=== PATIENT | male | born 1960 | race Caucasian/White ===

== ENCOUNTER 2019-04-10 23:30 | Emergency (ER) | payer OTHER, SELFPAY ==
[2019-04-10 23:42] VITALS: BP 141/89; PULSE 56; RESP 12; TEMP 36.4; O2SAT 95; BMI 21.9
[2019-04-11] VITALS (8 sets, daily range): BP systolic 108–152; BP diastolic 77–96; PULSE 52–61; RESP 11–18; O2SAT 93–95
[2019-04-11 00:11] LABS: Lactate (Lactic Acid) 1.4 mmol/L (0.7-2.1)
[2019-04-11 00:12] LABS: Alanine Aminotransferase 155 IU/L (21-72); Albumin 3.1 g/dL (3.5-5.0); Albumin Globulin Ratio 0.8 (1.0-2.8); Alkaline Phosphatase 465 U/L (38-126); Aspartate Aminotransferase 143 IU/L (17-59); BUN Creatinine Ratio 37.5 (6-22); Bilirubin Total 0.8 mg/dL (0.2-1.3); Blood Urea Nitrogen 15 mg/dL (9-20); Calcium 8.4 mg/dL (8.4-10.2); Carbon Dioxide 30 mmol/L (22-32); Chloride 99 mmol/L (98-107); Estimated Glomerular Filt Rate > 60.0 mL/min (>60); Globulin 3.8 g/dL (1.7-4.1); Glucose 137 mg/dL (70-100); HEMOLYSIS < 15 (0-50); Hematocrit 46.1 % (41-53); Hemoglobin 15.5 g/dL (13.5-17.5); Mean Corpuscular HGB Conc 33.7 % (30-36); Mean Corpuscular Hemoglobin 31.4 PG (26-34); Mean Corpuscular Volume 93.2 fL (80-100); Platelet Count 96 X10^3/uL (150-400); Potassium 4.1 mmol/L (3.4-5.1); Red Blood Cell Count 4.94 X10^6/uL (4.5-5.9); Red Cell Distribution Width 16.1 % (11.6-14.8); Sodium 134 mmol/L (137-145); Total Protein 6.9 g/dL (6.3-8.2); White Blood Cell Count 5.9 X10^3/uL (4.5-11.0)
[2019-04-11 00:19] LABS: INR 1.1 (0.9-1.3); Prothrombin Time 12.9 SECONDS (10.1-12.7)
[2019-04-11 00:21] LABS: PTT Partial Thromboplastin Tim 29 SECONDS (26.4-36.2)
--- NOTE | 2019-04-11 00:35 | DI.CT.S_ITS ---
PROCEDURE: CT HEAD/BRAIN WO CON INDICATIONS: decreased mental status hx of cancer TECHNIQUE: Noncontrast 4.5 mm thick angled axial sections acquired from the foramen magnum to the vertex, with coronal and sagittal reformats. For radiation dose reduction, the following was used: automated exposure control, adjustment of mA and/or kV according to patient size. COMPARISON: None. FINDINGS: Image quality: Excellent. CSF spaces: Basal cisterns are patent. No extra-axial fluid collections. Ventricles are normal in size and shape. Brain: There is a large intra-axial mass in the frontal area at the midline measuring 4.9 x 4.8 x 3.5 cm, invading the frontal calvarium. There is mass effect in the frontal lobes. No midline shift. No intracranial hemorrhage. [place]-white matter interface is normal. Skull and face: Lytic lesion in frontal area and the midline associated soft tissue mass as described above. In addition, there is a smaller 1.0 cm lytic lesion in the left frontal bone. Visualized facial bones are intact, without suspicious lesions. Sinuses: Visualized sinuses and mastoids are clear. IMPRESSION: 1. A large extra-axial mass in the frontal area at the midline measuring 4.9 x 4.8 x 3.5 cm which invades the frontal calvarium. There is mass effect in the frontal lobes. In addition, there is a lytic lesion in the left frontal bone. Both lesions are highly suspicious for metastatic disease. No significant discrepancy with the pst manager radiology preliminary report. Dictated by: Lucho aBrron M.D. on 04/11/2019 at 7:27 Approved by: Lucho Barron M.D. on 04/11/2019 at 7:36
[2019-04-11 00:36] LABS: Neutrophils Absolute Manual 4484 /uL (3000-5900); Total Cells Counted 100
[2019-04-11 00:37] LABS: Anisocytosis 1+
--- NOTE | 2019-04-11 00:39 | ED_ITS ---
HPI - Altered Mental Status General Chief Complaint: Altered Mental Status Stated Complaint: not acting right on chemo meds/radiation therapy Time Seen by Provider: 04/11/19 00:35 Source: family Mode of arrival: wheelchair History of Present Illness HPI narrative: Patient is a 58-year-old male who presents with altered mental status. He has history of hepatocellular carcinoma. They are visiting from [place] he was doing well today they went fishing. They went to bed he told his he was going to go turn off the TV. He sleeps with his eyes open due to a stroke his brother tried to wake him appears difficult to arouse he was willing to come to the ER which states is unusual. He did smoke marijuana yesterday but he has not smoked any today. According to records she has a history of alcohol abuse but he states he did not drink any. He left his narcotic pain medications at home in [place] he does not even have a fentanyl patch on. He continues to fall asleep with eyes open. He denies any pain. Related Data Home Medications Medication Instructions Recorded Confirmed albuterol sulfate 2 puff INHALATION Q6H PRN 04/11/19 04/11/19 buspirone 5 mg PO BID 04/11/19 04/11/19 clopidogrel 75 mg PO DAILY 04/11/19 04/11/19 dexamethasone 4 mg PO TID 04/11/19 04/11/19 dronabinol 2.5 mg PO BID 04/11/19 04/11/19 duloxetine 30 mg PO DAILY 04/11/19 04/11/19 duloxetine 60 mg PO DAILY 04/11/19 04/11/19 fentanyl 25 mcg/hr TRANSDERMAL SEEINSTR 04/11/19 04/11/19 fentanyl 50 mcg/hr TRANSDERMAL SEEINSTR 04/11/19 04/11/19 fentanyl See Rx Instructions .ROUTE .COMPLEX 04/11/19 04/11/19 fluconazole 100 mg PO DAILY 04/11/19 04/11/19 fluconazole 200 mg PO DAILY 04/11/19 04/11/19 folic acid 1 mg PO DAILY 04/11/19 04/11/19 gabapentin 300 mg PO BEDTIME 04/11/19 04/11/19 multivitamin [Daily-Hernan] 1 tab PO DAILY 04/11/19 04/11/19 oxycodone 20 mg PO Q4H 04/11/19 04/11/19 polyethylene glycol 3350 17 g PO PRN PRN 04/11/19 04/11/19 zolpidem 5 mg PO BEDTIME 04/11/19 04/11/19 Review of Systems Review of Systems ROS Unobtainable: All systems reviewed & are unremarkable except as noted in HPI and below Constitutional Denies chills, Denies fever(s), Denies lethargy and Denies weakness Neurologic Denies weakness Exam Initial Vital Signs Initial Vital Signs: Vital Signs Temperature 97.6 F 04/10/19 23:42 Pulse Rate 56 L 04/10/19 23:42 Respiratory Rate 12 04/10/19 23:42 Blood Pressure 141/89 H 04/10/19 23:42 Pulse Oximetry 95 04/10/19 23:42 Gen.: Sleepy male hard to arouse need painful stimulation HEENT: Head is atraumatic he does have an obvious abnormality on the superior part of his head Neck: Neck is supple Lungs: Clear bilaterally no wheezes rales or rhonchi Cardiac: Regular rate no murmur, scar noted Abdomen: Soft nontender no distension no fluid wave no guarding no rebound Extremities: Peripheral pulses intact no gross bony deformity Neurologic: Coagulating Bath Operator strength equal bilaterally Skin: Warm and dry no laceration multiple tattoo Scores GCS [place] coma scale eye opening: To pressure Jeovany coma scale verbal response: Words Jeovany coma scale motor response: Obey commands [place] coma scale total score: 11 Course Orders Ordered: ED Orders 04/10/19 23:50 Ammonia (NH3) Stat Complete Blood Count MAN DIFF Stat Comprehensive Metabolic Panel Stat Lactate (Lactic Acid) Stat PTT [Partial Thromboplastin Time] Stat Prothrombin Time INR Stat 04/11/19 00:35 CT head/brain wo con Stat Troponin & CK Cardiac Panel Stat EKG-12 Lead Stat 04/11/19 02:29 Ethanol (ETOH) Stat Lipase Stat 04/11/19 02:34 Urinalysis and Microscopic Stat Urine Drug Screen, Rapid Stat Discontinued Medications Lactulose (Enulose) 20 gm PO NOW ONE Stop: 04/11/19 01:51 Last Admin: 04/11/19 01:57 Dose: 20 gm Vital Signs - 8 hr 04/10/19 23:42 04/11/19 00:45 04/11/19 01:09 Temperature 97.6 F Pulse Rate 56 L 54 L 56 L Respiratory Rate 12 18 11 L Blood Pressure 141/89 H Blood Pressure [Right Arm] 108/77 145/88 H Pulse Oximetry 95 95 94 04/11/19 02:15 04/11/19 03:15 04/11/19 03:37 Temperature Pulse Rate 61 57 L 59 L Respiratory Rate 16 17 12 Blood Pressure Blood Pressure [Right Arm] 149/96 H 144/90 H 144/90 H Pulse Oximetry 93 94 95 04/11/19 04:15 04/11/19 05:15 04/11/19 05:45 Temperature Pulse Rate 56 L 55 L 52 L Respiratory Rate 12 12 13 Blood Pressure Blood Pressure [Right Arm] 152/91 H 139/91 H 140/89 Pulse Oximetry 94 94 94 MDM - Altered Mental Status Medical Records Attestation: I reviewed the patient's medical records. 92 patient is from the [facility] has been received and reviewed. Patient has had multiple CT scans chest abdomen and pelvis along with head since January. This you to be new diagnosis. Lab Data Attestation: I reviewed the patient's lab results. Result diagrams: 04/10/19 23:50 04/10/19 23:50 Lab Results 04/10/19 04/10/19 04/10/19 Range/Units 23:50 23:50 23:50 WBC 5.9 (4.5-11.0) X10^3/uL RBC 4.94 (4.5-5.9) X10^6/uL Hgb 15.5 (13.5-17.5) g/dL Hct 46.1 (41-53) % MCV 93.2 (80-100) fL MCH 31.4 (26-34) PG MCHC 33.7 (30-36) % RDW 16.1 H (11.6-14.8) % Plt Count 96 L (150-400) X10^3/uL Total Counted 100 Seg Neutrophils % 73.0 H (38-70) % Band Neutrophils % 3.0 (3-7) % Lymphocytes % (Manual) 15.0 L (25-45) % Monocytes % (Manual) 8.0 (2-11) % Eosinophils % (Manual) 1.0 L (2-4) % Neutrophils # (Manual) 4484 (4862-9512) /uL RBC Morphology See below Anisocytosis 1+ H PT 12.9 H (10.1-12.7) SECONDS INR 1.1 (0.9-1.3) APTT 29 (26.4-36.2) SECONDS Sodium 134 L (137-145) mmol/L Potassium 4.1 (3.4-5.1) mmol/L Chloride 99 (98-107) mmol/L Carbon Dioxide 30 (22-32) mmol/L BUN 15 (9-20) mg/dL Creatinine 0.40 L (0.66-1.25) mg/dL Estimated GFR > 60.0 (>60) mL/min BUN/Creatinine Ratio 37.5 H (6-22) Glucose 137 H (70-100) mg/dL Lactate (0.7-2.1) mmol/L Calcium 8.4 (8.4-10.2) mg/dL Total Bilirubin 0.8 (0.2-1.3) mg/dL AST 143 H (17-59) IU/L ALT 155 H (21-72) IU/L Alkaline Phosphatase 465 H (38-126) U/L Ammonia (9-30) umol/L Total Creatine Kinase (55-170) U/L CK-MB (CK-2) CK-MB (CK-2) Rel Index Troponin I (0.01-0.034) ng/mL Total Protein 6.9 (6.3-8.2) g/dL Albumin 3.1 L (3.5-5.0) g/dL Globulin 3.8 (1.7-4.1) g/dL Albumin/Globulin Ratio 0.8 L (1.0-2.8) Lipase (23-300) U/L Urine Color Urine Appearance Urine pH (4.5-8.0) Ur Specific [place] (1.000-1.035) Urine Protein (Negative) Urine Glucose (UA) (Negative) g/dL Urine Ketones (NEGATIVE) Urine Occult Blood (Negative) Urine Nitrate (Negative) Urine Bilirubin (NEGATIVE) Urine Urobilinogen (0.2) E.U./dL Ur Leukocyte Esterase (NEGATIVE) Urine RBC (0-5/HPF) Urine WBC (0-5/HPF) Urine Bacteria (None) Ur Culture Indicated? Urine Opiates Screen (Negative) Ur Oxycodone Screen (Negative) Urine Methadone Screen (Negative) Ur Barbiturates Screen (Negative) U Tricyclic Antidepress (Negative) Ur Phencyclidine Scrn (Negative) Ur Amphetamines Screen (Negative) U Methamphetamines Scrn (Negative) Ur MDMA Scrn (Ecstasy) (Negative) U Benzodiazepines Scrn (Negative) Urine Cocaine Screen (Negative) U Marijuana (THC) Screen (Negative) Ethyl Alcohol mg/dL 04/10/19 04/10/19 04/10/19 Range/Units 23:50 23:50 23:50 WBC (4.5-11.0) X10^3/uL RBC (4.5-5.9) X10^6/uL Hgb (13.5-17.5) g/dL Hct (41-53) % MCV (80-100) fL MCH (26-34) PG MCHC (30-36) % RDW (11.6-14.8) % Plt Count (150-400) X10^3/uL Total Counted Seg Neutrophils % (38-70) % Band Neutrophils % (3-7) % Lymphocytes % (Manual) (25-45) % Monocytes % (Manual) (2-11) % Eosinophils % (Manual) (2-4) % Neutrophils # (Manual) ([id number]) /uL RBC Morphology Anisocytosis PT (10.1-12.7) SECONDS INR (0.9-1.3) APTT (26.4-36.2) SECONDS Sodium (137-145) mmol/L Potassium (3.4-5.1) mmol/L Chloride (98-107) mmol/L Carbon Dioxide (22-32) mmol/L BUN (9-20) mg/dL Creatinine (0.66-1.25) mg/dL Estimated GFR (>60) mL/min BUN/Creatinine Ratio (6-22) Glucose (70-100) mg/dL Lactate 1.4 (0.7-2.1) mmol/L Calcium (8.4-10.2) mg/dL Total Bilirubin (0.2-1.3) mg/dL AST (17-59) IU/L ALT (21-72) IU/L Alkaline Phosphatase (38-126) U/L Ammonia 52.0 H (9-30) umol/L Total Creatine Kinase 53 L (55-170) U/L CK-MB (CK-2) TNP CK-MB (CK-2) Rel Index TNP Troponin I < 0.012 (0.01-0.034) ng/mL Total Protein (6.3-8.2) g/dL Albumin (3.5-5.0) g/dL Globulin (1.7-4.1) g/dL Albumin/Globulin Ratio (1.0-2.8) Lipase (23-300) U/L Urine Color Urine Appearance Urine pH (4.5-8.0) Ur Specific [place] (1.000-1.035) Urine Protein (Negative) Urine Glucose (UA) (Negative) g/dL Urine Ketones (NEGATIVE) Urine Occult Blood (Negative) Urine Nitrate (Negative) Urine Bilirubin (NEGATIVE) Urine Urobilinogen (0.2) E.U./dL Ur Leukocyte Esterase (NEGATIVE) Urine RBC (0-5/HPF) Urine WBC (0-5/HPF) Urine Bacteria (None) Ur Culture Indicated? Urine Opiates Screen (Negative) Ur Oxycodone Screen (Negative) Urine Methadone Screen (Negative) Ur Barbiturates Screen (Negative) U Tricyclic Antidepress (Negative) Ur Phencyclidine Scrn (Negative) Ur Amphetamines Screen (Negative) U Methamphetamines Scrn (Negative) Ur MDMA Scrn (Ecstasy) (Negative) U Benzodiazepines Scrn (Negative) Urine Cocaine Screen (Negative) U Marijuana (THC) Screen (Negative) Ethyl Alcohol mg/dL 04/10/19 04/11/19 04/11/19 Range/Units 23:50 02:34 02:34 WBC (4.5-11.0) X10^3/uL RBC (4.5-5.9) X10^6/uL Hgb (13.5-17.5) g/dL Hct (41-53) % MCV (80-100) fL MCH (26-34) PG MCHC (30-36) % RDW (11.6-14.8) % Plt Count (150-400) X10^3/uL Total Counted Seg Neutrophils % (38-70) % Band Neutrophils % (3-7) % Lymphocytes % (Manual) (25-45) % Monocytes % (Manual) (2-11) % Eosinophils % (Manual) (2-4) % Neutrophils # (Manual) ([id number]) /uL RBC Morphology Anisocytosis PT (10.1-12.7) SECONDS INR (0.9-1.3) APTT (26.4-36.2) SECONDS Sodium (137-145) mmol/L Potassium (3.4-5.1) mmol/L Chloride (98-107) mmol/L Carbon Dioxide (22-32) mmol/L BUN (9-20) mg/dL Creatinine (0.66-1.25) mg/dL Estimated GFR (>60) mL/min BUN/Creatinine Ratio (6-22) Glucose (70-100) mg/dL Lactate (0.7-2.1) mmol/L Calcium (8.4-10.2) mg/dL Total Bilirubin (0.2-1.3) mg/dL AST (17-59) IU/L ALT (21-72) IU/L Alkaline Phosphatase (38-126) U/L Ammonia (9-30) umol/L Total Creatine Kinase (55-170) U/L CK-MB (CK-2) CK-MB (CK-2) Rel Index Troponin I (0.01-0.034) ng/mL Total Protein (6.3-8.2) g/dL Albumin (3.5-5.0) g/dL Globulin (1.7-4.1) g/dL Albumin/Globulin Ratio (1.0-2.8) Lipase 146 (23-300) U/L Urine Color Yellow Urine Appearance Clear Urine pH 7.0 (4.5-8.0) Ur Specific [place] 1.020 (1.000-1.035) Urine Protein Negative (Negative) Urine Glucose (UA) Negative (Negative) g/dL Urine Ketones Negative (NEGATIVE) Urine Occult Blood Negative (Negative) Urine Nitrate Negative (Negative) Urine Bilirubin Negative (NEGATIVE) Urine Urobilinogen 1.0 (0.2) E.U./dL Ur Leukocyte Esterase Negative (NEGATIVE) Urine RBC None seen (0-5/HPF) Urine WBC 0-1/hpf (0-5/HPF) Urine Bacteria None seen (None) Ur Culture Indicated? Cult not indicated Urine Opiates Screen Negative (Negative) Ur Oxycodone Screen Negative (Negative) Urine Methadone Screen Negative (Negative) Ur Barbiturates Screen Negative (Negative) U Tricyclic Antidepress Negative (Negative) Ur Phencyclidine Scrn Negative (Negative) Ur Amphetamines Screen Negative (Negative) U Methamphetamines Scrn Negative (Negative) Ur MDMA Scrn (Ecstasy) Negative (Negative) U Benzodiazepines Scrn Negative (Negative) Urine Cocaine Screen Negative (Negative) U Marijuana (THC) Screen Positive H (Negative) Ethyl Alcohol < 10 mg/dL ECG Data Attestation: I personally reviewed and interpreted this ECG as follows: Prior ECG tracings: available for review (from [facility]) Interpretation: Sinus rhythm rate 80 for PVCs noted no ST changes MDM Narrative Medical decision making narrative: Patient previously admitted 03/05/2019 for confusion and altered mental status. At that time he had an ammonia level of 52 as well. 52 was not significantly elevated. Patient continues to follow sleep. He sleeps with his eyes open. He is difficult to arouse. He is positive for marijuana however the states he did not use this evening. He also denies using. He is not forthcoming with information. He continues to fall to sleep. And needing significant painful stimuli to arouse. states that at this time he is full code. Is later found that patient is on Ambien and that he took the medication prior to arrival. states that he typically has good about taking medication as directed unlikely he took more than 1. 6:15 a.m. patient is speaking much more clearly more than 1 word at a time feels ready and able to go home. It now comes out that he took 2 Ambien. He has a steady gait he has no back to normal and baseline. Ready and able to go home. Discharge Plan Departure Patient Disposition: Home Clinical Impression: Drug reaction Qualifiers: Encounter type: initial encounter Qualified Code(s): T50.905A - Adverse effect of unspecified drugs, medicaments and biological substances, initial encounter Discharge Date/Time: 04/11/19 06:30 Interventions: ED Discharge Assessment Last Done: 04/11/19 06:30 Instructions: DI for Altered Mental Status Activity Restrictions/Additional Instructions: *You have been diagnosed with drug reaction *What to do: What experienced was a normal reaction from Ambien. *Continue to take medications as directed *Follow up with your primary care provider in 2-3 days *Return to ER if you should have increased confusion, weakness or any new, worsening or concerning symptoms Prescriptions: No Action albuterol sulfate 90 mcg/actuation HFA aerosol inhaler 2 puff inhalation Q6H PRN (Reason: Wheezing) RF: 0 multivitamin [Daily-Hernan] tablet 1 tab PO DAILY RF: 0 fluconazole 100 mg tablet 100 mg PO DAILY RF: 0 buspirone 5 mg tablet 5 mg PO BID RF: 0 fentanyl 50 mcg/hr patch 72 hour 50 mcg/hr transdermal SEEINSTR RF: 0 fluconazole 200 mg tablet 200 mg PO DAILY RF: 0 clopidogrel 75 mg tablet 75 mg PO DAILY RF: 0 dronabinol 2.5 mg capsule 2.5 mg PO BID RF: 0 fentanyl 100 mcg/hr patch 72 hour See Rx Instructions .ROUTE .COMPLEX RF: 0 folic acid 1 mg tablet 1 mg PO DAILY RF: 0 zolpidem 5 mg tablet 5 mg PO BEDTIME RF: 0 gabapentin 100 mg capsule 300 mg PO BEDTIME RF: 0 fentanyl 25 mcg/hr patch 72 hour 25 mcg/hr transdermal SEEINSTR RF: 0 duloxetine 30 mg capsule,delayed release(DR/EC) 30 mg PO DAILY RF: 0 duloxetine 60 mg capsule,delayed release(DR/EC) 60 mg PO DAILY RF: 0 dexamethasone 4 mg tablet 4 mg PO TID RF: 0 polyethylene glycol 3350 17 gram/dose powder 17 g PO PRN PRN (Reason: Constipation) RF: 0 oxycodone 20 mg tablet 20 mg PO Q4H RF: 0
[2019-04-11 00:47] LABS: Creatine Kinase 53 U/L (55-170)
[2019-04-11 01:00] LABS: Troponin I < 0.012 ng/mL (0.01-0.034)
[2019-04-11] MEDS: LACTULOSE 20 GM/30 ML SOLUTION PO (01:57)
[2019-04-11 02:41] LABS: Bacteria Urine None Seen; RBC Urine None Seen (0-5/HPF)
[2019-04-11 02:43] LABS: Appearance Urine UA CLEAR; Bilirubin Urine UA NEGATIVE (NEGATIVE); Color Urine UA YELLOW; Glucose Urine UA NEGATIVE (Negative); Ketones Urine UA NEGATIVE (NEGATIVE); Leukocyte Esterase Urine UA NEGATIVE (NEGATIVE); Nitrite Urine UA NEGATIVE (Negative); Occult Blood Urine UA NEGATIVE (Negative); Protein Urine UA NEGATIVE (Negative)
[2019-04-11 02:45] LABS: Ethanol (ETOH) < 10 mg/dL; Lipase 146 U/L (23-300)
[2019-04-11 02:49] LABS: Urine Amphetamines Negative (Negative); Urine Barbiturates Negative (Negative); Urine Benzodiazepines Negative (Negative); Urine Cocaine Negative (Negative); Urine MDMA Negative (Negative); Urine Methadone Negative (Negative); Urine Methamphetamines Negative (Negative); Urine Morphine/Opi cutoff 2000 Negative (Negative); Urine Oxycodone Negative (Negative); Urine Phencyclidine Negative (Negative); Urine Tetrahydrocannabinol Positive (Negative); Urine Tricyclic Antidepressant Negative (Negative)
[2019-04-11 02:56] LABS: Culture Indicated Urine Cult Not Indicated; WBC Urine 0-1/HPF (0-5/HPF)
--- NOTE | 2019-04-11 06:15 | PC.NURSE ---
Pt much more alert now, Dr. Hollis at bedside reassessing patient.
== END 2019-04-11 06:30 | disposition home or self-care (01) ==
PROVIDERS: Emergency Provider Emergency Medicine
DX: R41.82 Altered mental status, unspecified (principal); T50.905A Adverse effect of unspecified drugs, medicaments and biological substances, initial encounter; R03.0 Elevated blood-pressure reading, without diagnosis of hypertension
CPT/HCPCS: 36591; 70450; 80053; 80305; 80320; 81001; 82140; 82550; 83605; 83690; 84484; 85025; 85610; 85730; 93005; 93010; 99284; 99285

== ENCOUNTER → 2019-05-04 12:01 | Outpatient (CLI) | payer OTHER, MEDICAID, SELFPAY ==
[2019-05-04 12:58] LABS: Add Manual Diff / Slide Review NO; Basophils Absolute Auto 0 /uL (0-100); Basophils Percent Auto 0.7 % (0-2); Eosinophils Absolute Auto 0 /uL (0-450); Eosinophils Percent Auto 0.7 % (2-4); Hemoglobin 16.8 g/dL (13.5-17.5); Lymphocytes Absolute Auto 500 /uL (1100-4500); Lymphocytes Percent Auto 10.9 % (25-40); Mean Corpuscular Hemoglobin 31.3 PG (26-34); Monocytes Absolute Auto 400 /uL (0-900); Monocytes Percent Auto 9.2 % (3-14); Neutrophils Absolute Auto 3500 /uL (1500-7000); Neutrophils Percent Auto 78.5 % (50-75); Platelet Count 149 X10^3/uL (150-400); Red Blood Cell Count 5.37 X10^6/uL (4.5-5.9); Red Cell Distribution Width 17.4 % (11.6-14.8); White Blood Cell Count 4.5 X10^3/uL (4.5-11.0)
[2019-05-04 13:12] LABS: INR 1.1 (0.9-1.3); Prothrombin Time 12.8 SECONDS (10.1-12.7)
[2019-05-04 13:14] LABS: PTT Partial Thromboplastin Tim 36 SECONDS (26.4-36.2)
[2019-05-04 13:23] LABS: Alanine Aminotransferase 155 IU/L (21-72); Albumin 3.4 g/dL (3.5-5.0); Albumin Globulin Ratio 0.8 (1.0-2.8); Alkaline Phosphatase 557 U/L (38-126); Aspartate Aminotransferase 238 IU/L (17-59); BUN Creatinine Ratio 24.3 (6-22); Bilirubin Total 0.9 mg/dL (0.2-1.3); Blood Urea Nitrogen 17 mg/dL (9-20); Calcium 8.6 mg/dL (8.4-10.2); Carbon Dioxide 30 mmol/L (22-32); Chloride 100 mmol/L (98-107); Cholesterol 169 mg/dL (140-199); Estimated Glomerular Filt Rate > 60.0 mL/min (>60); Globulin 4.2 g/dL (1.7-4.1); Glucose 87 mg/dL (70-100); HDL Cholesterol 46 mg/dL (40-60); HEMOLYSIS < 15 (0-50); LDL Cholesterol Calculated 100 mg/dL (<100); Potassium 4.6 mmol/L (3.4-5.1); Sodium 136 mmol/L (137-145); Total Protein 7.6 g/dL (6.3-8.2); Triglycerides 114 mg/dL (35-150)
[2019-05-04 13:52] LABS: Thyroid Stimulating Hormone 2.13 uIU/mL (0.47-4.68)
== END ==
PROVIDERS: PCP Internal Medicine; Visit Provider Internal Medicine
DX: C22.0 Liver cell carcinoma (principal)
CPT/HCPCS: 36415; 80053; 80061; 82105; 84443; 85025; 85610; 85730

== ENCOUNTER 2019-05-10 12:03 | Emergency (ER) | payer OTHER, MEDICAID, SELFPAY ==
[2019-05-10] VITALS (8 sets, daily range): BP systolic 95–145; BP diastolic 62–99; PULSE 64–88; RESP 14–23; TEMP 36.1; O2SAT 89–98; BMI 23.6
--- NOTE | 2019-05-10 12:42 | DI.CT.S_ITS ---
PROCEDURE: CT HEAD/BRAIN WO CON INDICATIONS: Right hand weakness and numbness TECHNIQUE: Noncontrast 4.5 mm thick angled axial sections acquired from the foramen magnum to the vertex, with coronal and sagittal reformats. For radiation dose reduction, the following was used: automated exposure control, adjustment of mA and/or kV according to patient size. COMPARISON: [facility], CT, CT HEAD/BRAIN WO CON, 04/11/2019, 0:47. FINDINGS: Image quality: Excellent. CSF spaces: Basal cisterns are patent. No extra-axial fluid collections. The ventricles are symmetric in size and shape. Brain: 4.9 x 4.8 x 2.5 cm hyperdense frontal extra-axial mass is stable compared to 03/20/19. Erosive changes involving the midline of the frontal bone and the left aspect of the frontal bone are stable compared to 04/11/2019. No intracranial bleeds. There is cerebral volume loss for age, with resultant ventricular and sulcal prominence. There are periventricular and deep white matter chronic small vessel ischemic changes. Chronic right occipital infarct is stable compared to prior exam. There is intracranial internal carotid artery atherosclerosis. Skull and face: Calvarium and visualized facial bones appear intact, without suspicious lesions. Sinuses: Visualized sinuses and mastoids are clear. IMPRESSION: 1. Stable examination compared to 04/11/19. 2. Large hyperdense, midline frontal, extra-axial mass is stable in size and contour. The frontal extra-axial mass continues to have mass effect on the adjacent brain parenchyma. 3. Focal osseous erosions involving the midline and left frontal bone are stable compared with the prior exam. Dictated by: Lucy Richardson MD, PhD on 05/10/2019 at 12:58 Approved by: Lucy Richardson MD, PhD on 05/10/2019 at 13:04
--- NOTE | 2019-05-10 13:00 | ED.NEUROSD ---
HPI - Neuro Symptoms/Deficit General Chief Complaint: Neuro Symptoms/Deficit Stated Complaint: right hand numb cant use anymore Time Seen by Provider: 05/10/19 12:56 Source: patient Mode of arrival: ambulatory Limitations: no limitations History of Present Illness HPI Narrative: This is a 58-year-old male comes emergency department with complaint of numbness and difficulty using his right hand. Patient states he noticed it last night and has not improved. Patient is left hand dominant. He denies any numbness or weakness elsewhere. He can lift his arm and use it but he cannot effectively use his hand. Sometimes he notices a little bit issues with speech. 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 Patient states that he did receive radiation for 10 days which was finished on April 11. He then moved here shortly thereafter to be closer to family. He is continuing to take a pill for chemotherapy. Angeline Mejia is helping to establish care with Oncology. This is his [id number]. Patient denies any headaches, sometimes he feels like his vision is a little fuzzy. He denies any chest pain or new shortness of breath. He denies any vomiting but occasionally feels nauseated. Issues with bowel movements or urination. Patient states he has had an appendectomy. He is taking medications for mood, pain control, it appears he is taking dexamethasone 4 mg t.i.d. as well as Plavix. Patient denies any allergies. Rare tobacco use, he no longer drinks alcohol, denies any current illicit. Although he does use Marinol for appetite. On Anticoagulants: No Related Data Home Medications Medication Instructions Recorded Confirmed albuterol sulfate 2 puff INHALATION Q6H PRN 04/11/19 04/11/19 buspirone 5 mg PO BID 04/11/19 04/11/19 clopidogrel 75 mg PO DAILY 04/11/19 04/11/19 dexamethasone 4 mg PO TID 04/11/19 04/11/19 dronabinol 2.5 mg PO BID 04/11/19 04/11/19 duloxetine 30 mg PO DAILY 04/11/19 04/11/19 duloxetine 60 mg PO DAILY 04/11/19 04/11/19 fentanyl 25 mcg/hr TRANSDERMAL SEEINSTR 04/11/19 04/11/19 fentanyl 50 mcg/hr TRANSDERMAL SEEINSTR 04/11/19 04/11/19 fentanyl See Rx Instructions .ROUTE .COMPLEX 04/11/19 04/11/19 fluconazole 100 mg PO DAILY 04/11/19 04/11/19 fluconazole 200 mg PO DAILY 04/11/19 04/11/19 folic acid 1 mg PO DAILY 04/11/19 04/11/19 gabapentin 300 mg PO BEDTIME 04/11/19 04/11/19 multivitamin [Daily-Hernan] 1 tab PO DAILY 04/11/19 04/11/19 oxycodone 20 mg PO Q4H 04/11/19 04/11/19 polyethylene glycol 3350 17 g PO PRN PRN 04/11/19 04/11/19 zolpidem 5 mg PO BEDTIME 04/11/19 04/11/19 Previous Rx's Medication Instructions Recorded dexamethasone 4 mg PO QID #40 tab 05/10/19 Allergies Allergy/AdvReac Type Severity Reaction Status Date / Time No Known Drug Allergies Allergy Verified 05/10/19 12:29 Review of Systems Review of Systems ROS Unobtainable: All systems reviewed & are unremarkable except as noted in HPI and below Constitutional Denies chills, Denies fever(s), Denies lethargy and Reports weakness (right hand) Gastrointestinal Gastrointestinal: Reports nausea and Denies vomiting Musculoskeletal Reports as per HPI, Reports limited range of motion, Reports muscle weakness (right hand) and Denies numbness Integumentary/Breasts Reports dry skin (peeling skin on hands, per patient side effect of medication) and Reports erythema Neurologic Denies numbness and Reports weakness (right hand) PFSH Medical History CVA (cerebral vascular accident) (Acute) Hepatitis C (Acute) Hepatocellular carcinoma (Acute) History of stroke (Acute) Liver cirrhosis (Acute) Surgical History S/P CABG x 3 (Acute) Social History household members: spouse Smoking Status: Current some day smoker Social History household members: spouse Smoking Status: Current some day smoker Exam Narrative Exam Narrative: GEN: well nourished, well appearing male, alert and oriented x 3, patient appears to be in mild distress. HEENT: Atraumatic, pupils are equal round reactive to light, extraocular movements are intact, nares are clear. Throat is clear without any exudates, erythema, tonsillar enlargement or uvular deviation, no facial droop HEART: Regular rate and rhythm without murmur, clicks, rubs. No carotid bruits, pulses are equal in upper and lower extremities LUNGS:Lungs clear to auscultation, no wheezes, rales, crackles, chest moves symmetrically ABD:bowel sounds normal, soft, non-tender, no guarding, rebound, rigidity, no masses noted, no hepatosplenomegaly :No CVA tenderness MSCL: Non-tender, no muscle atrophy, muscles strength 5/5 upper and lower extremities, some except patient he can hold both arms out for 10 seconds but he cannot fully extend his wrist or his fingers. 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 Full range of motion otherwise. NEURO:CN 2-12 intact, sensation normal, reflexes 2/4 upper and lower extremities. finger nose finger test normal, heel [place] test normal. SKIN: Patient has some flaking erythematous skin on his bilateral hands on the dorsum of the and fingers. Patient states this is chronic. No signs of infection, no discharge. Initial Vital Signs Initial Vital Signs: Vital Signs Temperature 97.0 F L 05/10/19 12:26 Pulse Rate 88 05/10/19 12:26 Respiratory Rate 23 05/10/19 12:26 Blood Pressure 119/81 05/10/19 12:26 Pulse Oximetry 91 05/10/19 12:26 Scores NIH Stroke Scale Level of Conciousness: Alert, keenly responsive Ask month/age: Answers both questions correctly. Open/close eyes, close hand: Performs both tasks correctly Best gaze horizontal: Normal Visual [place]: No visual loss Facial palsy: Normal symetrical movement Left arm drift: No drift for full 10 sec Right arm drift: Some effort against gravity, cannot maintain, drifts down to bed (no drift in arm but cannot extend at wrist, hold fingers out) Left leg drift: No drift for full 10 sec Right leg drift: No drift for full 10 sec Limb ataxia: Absent Sensory on face/arms/legs: Normal, no sensory loss Best language: No aphasia, normal Dysarthria: Normal Extinction or inattention: No abnormality Total NIH Stroke scale score: 2 Course Orders Ordered: ED Orders 05/10/19 12:42 CT head/brain wo con Stat EKG-12 Lead Stat 05/10/19 13:00 Basic Metabolic Panel Stat Complete Blood Count AUTO DIFF Stat Partial Thromboplastin Time Stat Prothrombin Time INR Stat 05/10/19 13:56 MR head/brain wo/w con Stat Discontinued Medications Dexamethasone (Decadron) 10 mg IV NOW ONE Stop: 05/10/19 13:13 Last Admin: 05/10/19 13:20 Dose: 10 mg Sodium Chloride (Normal Saline 0.9%) 1,000 mls @ 150 mls/hr IV CONT MATTY Last Infusion: 05/10/19 17:32 Dose: 0 mls/hr Admin: 05/10/19 13:06 Dose: 150 mls/hr Ondansetron HCl (Zofran) 4 mg IV NOW ONE Stop: 05/10/19 13:13 Last Admin: 05/10/19 13:20 Dose: 4 mg Vital Signs - 8 hr 05/10/19 12:26 05/10/19 13:00 05/10/19 13:30 Temperature 97.0 F L Pulse Rate 88 66 64 Respiratory Rate 23 14 15 Blood Pressure 119/81 Blood Pressure [Right Arm] 102/62 95/63 Pulse Oximetry 91 92 94 05/10/19 14:30 05/10/19 15:00 05/10/19 16:46 Temperature Pulse Rate 64 71 74 Respiratory Rate 15 15 15 Blood Pressure Blood Pressure [Right Arm] 103/71 105/78 143/97 H Pulse Oximetry 90 L 90 L 89 L 05/10/19 17:00 05/10/19 17:32 Temperature Pulse Rate 69 67 Respiratory Rate 15 16 Blood Pressure Blood Pressure [Right Arm] 145/96 H 140/99 H Pulse Oximetry 96 98 MDM - Neuro Symptoms/Deficit Lab Data Attestation: I reviewed the patient's lab results. Result diagrams: 05/10/19 13:00 05/10/19 13:00 Lab Results 05/10/19 05/10/19 05/10/19 Range/Units 13:00 13:00 13:00 WBC 5.6 (4.5-11.0) X10^3/uL RBC 4.83 (4.5-5.9) X10^6/uL Hgb 15.5 (13.5-17.5) g/dL Hct 45.1 (41-53) % MCV 93.5 (80-100) fL MCH 32.1 (26-34) PG MCHC 34.3 (30-36) % RDW 17.2 H (11.6-14.8) % Plt Count 83 L (150-400) X10^3/uL Neut % (Auto) 75.1 H (50-75) % Lymph % (Auto) 13.9 L (25-40) % [place] % (Auto) 9.5 (3-14) % Eos % (Auto) 1.0 L (2-4) % Baso % (Auto) 0.5 (0-2) % Neut # (Auto) 4200 (8248-3851) /uL Lymph # (Auto) 800 L (2152-1225) /uL [place] # (Auto) 500 (0-900) /uL Eos # (Auto) 100 (0-450) /uL Baso # (Auto) 0 (0-100) /uL PT 13.3 H (10.1-12.7) SECONDS INR 1.2 (0.9-1.3) APTT 34 D (26.4-36.2) SECONDS Sodium 132 L (137-145) mmol/L Potassium 3.7 (3.4-5.1) mmol/L Chloride 100 (98-107) mmol/L Carbon Dioxide 26 (22-32) mmol/L BUN 11 (9-20) mg/dL Creatinine 0.50 L (0.66-1.25) mg/dL Estimated GFR > 60.0 (>60) mL/min BUN/Creatinine Ratio 22.0 (6-22) Glucose 111 H (70-100) mg/dL Calcium 8.0 L (8.4-10.2) mg/dL Imaging Data CT scan - head: Radiologist's impression: [address] [address] [address] Scan Report Signed Patient: Izaiah Hassan WMR#: [id number] : 1960Acct:[id number] Age/Sex: 58 / MDate of Service: 05/10/19 Loc: ED Accession Number: [id number] Procedure: CT head/brain wo con Ordering Provider: Jacki Howell D.O. PROCEDURE: CT HEAD/BRAIN WO CON INDICATIONS: Right hand weakness and numbness TECHNIQUE: Noncontrast 4.5 mm thick angled axial sections acquired from the foramen magnum to the vertex, with coronal and sagittal reformats. For radiation dose reduction, the following was used: automated exposure control, adjustment of mA and/or kV according to patient size. COMPARISON: [facility], CT, CT HEAD/BRAIN WO CON, 04/11/2019, 0:47. FINDINGS: Image quality: Excellent. CSF spaces: Basal cisterns are patent. No extra-axial fluid collections. The ventricles are symmetric in size and shape. Brain: 4.9 x 4.8 x 2.5 cm hyperdense frontal extra-axial mass is stable compared to 03/20/19. Erosive changes involving the midline of the frontal bone and the left aspect of the frontal bone are stable compared to 04/11/2019. No intracranial bleeds. There is cerebral volume loss for age, with resultant ventricular and sulcal prominence. There are periventricular and deep white matter chronic small vessel ischemic changes. Chronic right occipital infarct is stable compared to prior exam. There is intracranial internal carotid artery atherosclerosis. Skull and face: Calvarium and visualized facial bones appear intact, without suspicious lesions. Sinuses: Visualized sinuses and mastoids are clear. IMPRESSION: 1. Stable examination compared to 04/11/19. 2. Large hyperdense, midline frontal, extra-axial mass is stable in size and contour. The frontal extra-axial mass continues to have mass effect on the adjacent brain parenchyma. 3. Focal osseous erosions involving the midline and left frontal bone are stable compared with the prior exam. Dictated by: Lucy Richardson MD, PhD on 05/10/2019 at 12:58 Approved by: Lucy Richardson MD, PhD on 05/10/2019 at 13:04 MRI brain: Radiologist's impression: [address] [address] Magnetic Resonance Report Signed Patient: Izaiah Hassan WMR#: [id number] : 1960Acct:[id number] Age/Sex: 58 / MDate of Service: 05/10/19 Loc: ED Accession Number: [id number] Procedure: MR head/brain wo/w con Ordering Provider: Jacki Howell D.O. PROCEDURE: MR HEAD/BRAIN WO/W CON INDICATIONS: Right hand weakness, known hcc metastases. TECHNIQUE: Noncontrast axial T1 spin echo, axial T2 fast spin echo, sagittal and axial FLAIR, coronal T2 fast spin echo, axial gradient echo, axial diffusion and ADC through the brain. After the administration of contrast, axial and coronal 3D VIBE or T1 spin echo with fat saturation through the brain. COMPARISON: [facility], CT, CT HEAD/BRAIN WO CON, 05/10/2019, 12:43. [facility], CT, CT HEAD/BRAIN WO CON, 04/11/2019, 0:47. FINDINGS: Image quality: Excellent. CSF Spaces: Basal cisterns are patent. No extra-axial fluid collections. Ventricles are normal in size and shape. Brain: There is mass effect in the frontal lobes near the vertex at midline from the large extra-axial or skull mass. No midline shift. No intracranial bleeds or masses. No abnormal intracranial enhancement. The brainstem appears normal. Diffusion-weighted images demonstrate no acute ischemic insults. No chronic ischemic insults. Normal intravascular flow voids are present. Skull and face: There is a large, extra-axial, heterogeneously enhancing mass centered in the frontal bone at midline near the vertex measuring 5.2 cm anteroposterior, 4.7 cm transverse and 2.7 cm cephalocaudal. The mass demonstrates mass effect and compression of the frontal lobes. A smaller enhancing mass is present in the left frontal bone measuring 1.2 x 2.1 x 0.9 cm. Sinuses: Sinuses and mastoids appear clear. IMPRESSION: 1. A large 5.2 x 4.7 x 2.7 cm extra-axial, heterogeneously enhancing mass centered in the frontal bone at midline near the vertex. There is significant mass effect with compression of the frontal lobes bilaterally. A smaller mass is present in the left frontal bone measuring 1.2 x 2.1 x 0.9 cm. Both lesions are unchanged in size. Both lesions are stable in size. 2. No acute intracranial abnormalities other than significant mass effect to the frontal lobes by the large extra axial mass as described above. Result was discussed with Dr. Howell. Dictated by: Lucho Barron M.D. on 05/10/2019 at 16:32 Approved by: Lucho Barron M.D. on 05/10/2019 at 16:50 ECG Data Attestation: I personally reviewed and interpreted this ECG as follows: Prior ECG tracings: available for review Interpretation: Sinus rhythm with frequent PVCs, rate of 71 P 157 QRS 89 QTC 398. Patient has full bit ST depression in V4, [address] elevation appreciated. Patient has prior from 04/11/2019 with similar PVCs and ST segments appear similar. MDM Narrative Medical decision making narrative: Patient gave me permission to contact Dr. Angeline Mejia to discuss his care. Spoke with Dr. Bateman, we discussed that they would refer him to radiation either Dr. low or weight, increase his steroids to 4 mg q.i.d. from 4 mg t.i.d. and 4 able to get an MRI with and without contrast would be helpful. Discussed with patient he is willing to stay. I also spoke with Dr. Angeline momin and she will help make sure the patient is getting appropriate follow-up and taper him down on his dexamethasone. Referral given to Dr. Alex bellamy as well as the radiation oncology doctors. Patient expressed understanding. He would like to return home. He has intermittent low oxygen readings, he states he has been told this before. He states it doesn't bother him to much and plan to follow up. Discharge Plan Departure Patient Disposition: Home Clinical Impression: Weakness of right hand Discharge Date/Time: 05/10/19 17:38 Interventions: ED Discharge Assessment Last Done: 05/10/19 17:37 Activity Restrictions/Additional Instructions: Follow up with your physician in the next 24 hours. Call for follow up with the oncology team and radiation oncologist. Continue home medications as prescribed. Increase your dexamethasone from 4 mg 3 times daily to 4 mg 4 times daily Return to ER for fevers greater than 100.4F, new or worsening neurologic changes, new chest pain, shortness of breath, sudden vision changes, difficulty with speech, new weakness or difficulty with ambulation, persistent vomiting or other new or concerning symptoms. Prescriptions: New dexamethasone 4 mg tablet 4 mg PO QID Qty: 40 RF: 0 No Action albuterol sulfate 90 mcg/actuation HFA aerosol inhaler 2 puff inhalation Q6H PRN (Reason: Wheezing) RF: 0 multivitamin [Daily-Hernan] tablet 1 tab PO DAILY RF: 0 fluconazole 100 mg tablet 100 mg PO DAILY RF: 0 buspirone 5 mg tablet 5 mg PO BID RF: 0 fentanyl 50 mcg/hr patch 72 hour 50 mcg/hr transdermal SEEINSTR RF: 0 fluconazole 200 mg tablet 200 mg PO DAILY RF: 0 clopidogrel 75 mg tablet 75 mg PO DAILY RF: 0 dronabinol 2.5 mg capsule 2.5 mg PO BID RF: 0 fentanyl 100 mcg/hr patch 72 hour See Rx Instructions .ROUTE .COMPLEX RF: 0 folic acid 1 mg tablet 1 mg PO DAILY RF: 0 zolpidem 5 mg tablet 5 mg PO BEDTIME RF: 0 gabapentin 100 mg capsule 300 mg PO BEDTIME RF: 0 fentanyl 25 mcg/hr patch 72 hour 25 mcg/hr transdermal SEEINSTR RF: 0 duloxetine 30 mg capsule,delayed release(DR/EC) 30 mg PO DAILY RF: 0 duloxetine 60 mg capsule,delayed release(DR/EC) 60 mg PO DAILY RF: 0 dexamethasone 4 mg tablet 4 mg PO TID RF: 0 polyethylene glycol 3350 17 gram/dose powder 17 g PO PRN PRN (Reason: Constipation) RF: 0 oxycodone 20 mg tablet 20 mg PO Q4H RF: 0 Referrals: Eduar Bateman MD [Physician] - Angeline Mejia MD [Primary Care Provider] - Hilario Low MD [Non-Staff] -
[2019-05-10] MEDS: SODIUM CHLORIDE 0.9% 1,000 ML 150 ML IV (13:06)
[2019-05-10 13:09] LABS: Add Manual Diff / Slide Review NO; Basophils Absolute Auto 0 /uL (0-100); Basophils Percent Auto 0.5 % (0-2); Eosinophils Absolute Auto 100 /uL (0-450); Hematocrit 45.1 % (41-53); Hemoglobin 15.5 g/dL (13.5-17.5); Lymphocytes Absolute Auto 800 /uL (1100-4500); Lymphocytes Percent Auto 13.9 % (25-40); Mean Corpuscular HGB Conc 34.3 % (30-36); Mean Corpuscular Hemoglobin 32.1 PG (26-34); Mean Corpuscular Volume 93.5 fL (80-100); Monocytes Absolute Auto 500 /uL (0-900); Monocytes Percent Auto 9.5 % (3-14); Neutrophils Absolute Auto 4200 /uL (1500-7000); Neutrophils Percent Auto 75.1 % (50-75); Platelet Count 83 X10^3/uL (150-400); Red Blood Cell Count 4.83 X10^6/uL (4.5-5.9); Red Cell Distribution Width 17.2 % (11.6-14.8); White Blood Cell Count 5.6 X10^3/uL (4.5-11.0)
[2019-05-10 13:16] LABS: INR 1.2 (0.9-1.3); Prothrombin Time 13.3 SECONDS (10.1-12.7)
[2019-05-10 13:19] LABS: PTT Partial Thromboplastin Tim 34 SECONDS (26.4-36.2)
[2019-05-10] MEDS: ONDANSETRON 4 MG/2 ML INJ IV (13:20)
[2019-05-10] MEDS: DEXAMETHASONE 10 MG/ML VIAL IV (13:20)
--- NOTE | 2019-05-10 13:20 | ED_ITS ---
HPI - Neuro Symptoms/Deficit General Chief Complaint: Neuro Symptoms/Deficit Stated Complaint: right hand numb cant use anymore Time Seen by Provider: 05/10/19 12:56 Source: patient Mode of arrival: ambulatory Limitations: no limitations History of Present Illness HPI Narrative: This is a 58-year-old male comes emergency department with complaint of numbness and difficulty using his right hand. Patient states he noticed it last night and has not improved. Patient is left hand dominant. He denies any numbness or weakness elsewhere. He can lift his arm and use it but he cannot effectively use his hand. Sometimes he notices a little bit issues with speech. 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 Patient states that he did receive radiation for 10 days which was finished on April 11. He then moved here shortly thereafter to be closer to family. He is continuing to take a pill for chemotherapy. Angeline Mejia is helping to establish care with Oncology. This is his [id number]-hoc. Patient denies any headaches, sometimes he feels like his vision is a little fuzzy. He denies any chest pain or new shortness of breath. He denies any vomiting but occasionally feels nauseated. Issues with bowel movements or urination. Patient states he has had an appendectomy. He is taking medications for mood, pain control, it appears he is taking dexamethasone 4 mg t.i.d. as well as Plavix. Patient denies any allergies. Rare tobacco use, he no longer drinks alcohol, denies any current illicit. Although he does use Marinol for appetite. On Anticoagulants: No Related Data Home Medications Medication Instructions Recorded Confirmed albuterol sulfate 2 puff INHALATION Q6H PRN 04/11/19 04/11/19 buspirone 5 mg PO BID 04/11/19 04/11/19 clopidogrel 75 mg PO DAILY 04/11/19 04/11/19 dexamethasone 4 mg PO TID 04/11/19 04/11/19 dronabinol 2.5 mg PO BID 04/11/19 04/11/19 duloxetine 30 mg PO DAILY 04/11/19 04/11/19 duloxetine 60 mg PO DAILY 04/11/19 04/11/19 fentanyl 25 mcg/hr TRANSDERMAL SEEINSTR 04/11/19 04/11/19 fentanyl 50 mcg/hr TRANSDERMAL SEEINSTR 04/11/19 04/11/19 fentanyl See Rx Instructions .ROUTE .COMPLEX 04/11/19 04/11/19 fluconazole 100 mg PO DAILY 04/11/19 04/11/19 fluconazole 200 mg PO DAILY 04/11/19 04/11/19 folic acid 1 mg PO DAILY 04/11/19 04/11/19 gabapentin 300 mg PO BEDTIME 04/11/19 04/11/19 multivitamin [Daily-Hernan] 1 tab PO DAILY 04/11/19 04/11/19 oxycodone 20 mg PO Q4H 04/11/19 04/11/19 polyethylene glycol 3350 17 g PO PRN PRN 04/11/19 04/11/19 zolpidem 5 mg PO BEDTIME 04/11/19 04/11/19 Previous Rx's Medication Instructions Recorded dexamethasone 4 mg PO QID #40 tab 05/10/19 Allergies Allergy/AdvReac Type Severity Reaction Status Date / Time No Known Drug Allergies Allergy Verified 05/10/19 12:29 Review of Systems Review of Systems ROS Unobtainable: All systems reviewed & are unremarkable except as noted in HPI and below Constitutional Denies chills, Denies fever(s), Denies lethargy and Reports weakness (right hand) Gastrointestinal Gastrointestinal: Reports nausea and Denies vomiting Musculoskeletal Reports as per HPI, Reports limited range of motion, Reports muscle weakness (right hand) and Denies numbness Integumentary/Breasts Reports dry skin (peeling skin on hands, per patient side effect of medication) and Reports erythema Neurologic Denies numbness and Reports weakness (right hand) PFSH Medical History CVA (cerebral vascular accident) (Acute) Hepatitis C (Acute) Hepatocellular carcinoma (Acute) History of stroke (Acute) Liver cirrhosis (Acute) Surgical History S/P CABG x 3 (Acute) Social History household members: spouse Smoking Status: Current some day smoker Social History household members: spouse Smoking Status: Current some day smoker Exam Narrative Exam Narrative: GEN: well nourished, well appearing male, alert and oriented x 3, patient appears to be in mild distress. HEENT: Atraumatic, pupils are equal round reactive to light, extraocular movements are intact, nares are clear. Throat is clear without any exudates, erythema, tonsillar enlargement or uvular deviation, no facial droop HEART: Regular rate and rhythm without murmur, clicks, rubs. No carotid bruits, pulses are equal in upper and lower extremities LUNGS:Lungs clear to auscultation, no wheezes, rales, crackles, chest moves symmetrically ABD:bowel sounds normal, soft, non-tender, no guarding, rebound, rigidity, no masses noted, no hepatosplenomegaly :No CVA tenderness MSCL: Non-tender, no muscle atrophy, muscles strength 5/5 upper and lower extremities, some except patient he can hold both arms out for 10 seconds but he cannot fully extend his wrist or his fingers. 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 Full range of motion otherwise. NEURO:CN 2-12 intact, sensation normal, reflexes 2/4 upper and lower extremities. finger nose finger test normal, heel fairbanks test normal. SKIN: Patient has some flaking erythematous skin on his bilateral hands on the dorsum of the and fingers. Patient states this is chronic. No signs of infection, no discharge. Initial Vital Signs Initial Vital Signs: Vital Signs Temperature 97.0 F L 05/10/19 12:26 Pulse Rate 88 05/10/19 12:26 Respiratory Rate 23 05/10/19 12:26 Blood Pressure 119/81 05/10/19 12:26 Pulse Oximetry 91 05/10/19 12:26 Scores NIH Stroke Scale Level of Conciousness: Alert, keenly responsive Ask month/age: Answers both questions correctly. Open/close eyes, close hand: Performs both tasks correctly Best gaze horizontal: Normal Visual [place]: No visual loss Facial palsy: Normal symetrical movement Left arm drift: No drift for full 10 sec Right arm drift: Some effort against gravity, cannot maintain, drifts down to bed (no drift in arm but cannot extend at wrist, hold fingers out) Left leg drift: No drift for full 10 sec Right leg drift: No drift for full 10 sec Limb ataxia: Absent Sensory on face/arms/legs: Normal, no sensory loss Best language: No aphasia, normal Dysarthria: Normal Extinction or inattention: No abnormality Total NIH Stroke scale score: 2 Course Orders Ordered: ED Orders 05/10/19 12:42 CT head/brain wo con Stat EKG-12 Lead Stat 05/10/19 13:00 Basic Metabolic Panel Stat Complete Blood Count AUTO DIFF Stat Partial Thromboplastin Time Stat Prothrombin Time INR Stat 05/10/19 13:56 MR head/brain wo/w con Stat Discontinued Medications Dexamethasone (Decadron) 10 mg IV NOW ONE Stop: 05/10/19 13:13 Last Admin: 05/10/19 13:20 Dose: 10 mg Sodium Chloride (Normal Saline 0.9%) 1,000 mls @ 150 mls/hr IV CONT MATTY Last Infusion: 05/10/19 17:32 Dose: 0 mls/hr Admin: 05/10/19 13:06 Dose: 150 mls/hr Ondansetron HCl (Zofran) 4 mg IV NOW ONE Stop: 05/10/19 13:13 Last Admin: 05/10/19 13:20 Dose: 4 mg Vital Signs - 8 hr 05/10/19 12:26 05/10/19 13:00 05/10/19 13:30 Temperature 97.0 F L Pulse Rate 88 66 64 Respiratory Rate 23 14 15 Blood Pressure 119/81 Blood Pressure [Right Arm] 102/62 95/63 Pulse Oximetry 91 92 94 05/10/19 14:30 05/10/19 15:00 05/10/19 16:46 Temperature Pulse Rate 64 71 74 Respiratory Rate 15 15 15 Blood Pressure Blood Pressure [Right Arm] 103/71 105/78 143/97 H Pulse Oximetry 90 L 90 L 89 L 05/10/19 17:00 05/10/19 17:32 Temperature Pulse Rate 69 67 Respiratory Rate 15 16 Blood Pressure Blood Pressure [Right Arm] 145/96 H 140/99 H Pulse Oximetry 96 98 MDM - Neuro Symptoms/Deficit Lab Data Attestation: I reviewed the patient's lab results. Result diagrams: 05/10/19 13:00 05/10/19 13:00 Lab Results 05/10/19 05/10/19 05/10/19 Range/Units 13:00 13:00 13:00 WBC 5.6 (4.5-11.0) X10^3/uL RBC 4.83 (4.5-5.9) X10^6/uL Hgb 15.5 (13.5-17.5) g/dL Hct 45.1 (41-53) % MCV 93.5 (80-100) fL MCH 32.1 (26-34) PG MCHC 34.3 (30-36) % RDW 17.2 H (11.6-14.8) % Plt Count 83 L (150-400) X10^3/uL Neut % (Auto) 75.1 H (50-75) % Lymph % (Auto) 13.9 L (25-40) % [place]mort[place] % (Auto) 9.5 (3-14) % Eos % (Auto) 1.0 L (2-4) % Baso % (Auto) 0.5 (0-2) % Neut # (Auto) 4200 (8099-3405) /uL Lymph # (Auto) 800 L (8899-9919) /uL [place] # (Auto) 500 (0-900) /uL Eos # (Auto) 100 (0-450) /uL Baso # (Auto) 0 (0-100) /uL PT 13.3 H (10.1-12.7) SECONDS INR 1.2 (0.9-1.3) APTT 34 D (26.4-36.2) SECONDS Sodium 132 L (137-145) mmol/L Potassium 3.7 (3.4-5.1) mmol/L Chloride 100 (98-107) mmol/L Carbon Dioxide 26 (22-32) mmol/L BUN 11 (9-20) mg/dL Creatinine 0.50 L (0.66-1.25) mg/dL Estimated GFR > 60.0 (>60) mL/min BUN/Creatinine Ratio 22.0 (6-22) Glucose 111 H (70-100) mg/dL Calcium 8.0 L (8.4-10.2) mg/dL Imaging Data CT scan - head: Radiologist's impression: [address] [address] [address] Scan Report Signed Patient: Izaiah Hassan WMR#: [id number] : 1960Acct:[id number] Age/Sex: 58 / MDate of Service: 05/10/19 Loc: ED Accession Number: [id number] Procedure: CT head/brain wo con Ordering Provider: Jacki Howell D.O. PROCEDURE: CT HEAD/BRAIN WO CON INDICATIONS: Right hand weakness and numbness TECHNIQUE: Noncontrast 4.5 mm thick angled axial sections acquired from the foramen magnum to the vertex, with coronal and sagittal reformats. For radiation dose reduction, the following was used: automated exposure control, adjustment of mA and/or kV according to patient size. COMPARISON: [facility], CT, CT HEAD/BRAIN WO CON, 04/11/2019, 0:47. FINDINGS: Image quality: Excellent. CSF spaces: Basal cisterns are patent. No extra-axial fluid collections. The ventricles are symmetric in size and shape. Brain: 4.9 x 4.8 x 2.5 cm hyperdense frontal extra-axial mass is stable compared to 03/20/19. Erosive changes involving the midline of the frontal bone and the left aspect of the frontal bone are stable compared to 04/11/2019. No intracranial bleeds. There is cerebral volume loss for age, with resultant ventricular and sulcal prominence. There are periventricular and deep white matter chronic small vessel ischemic changes. Chronic right occipital infarct is stable compared to prior exam. There is intracranial internal carotid artery atherosclerosis. Skull and face: Calvarium and visualized facial bones appear intact, without suspicious lesions. Sinuses: Visualized sinuses and mastoids are clear. IMPRESSION: 1. Stable examination compared to 04/11/19. 2. Large hyperdense, midline frontal, extra-axial mass is stable in size and contour. The frontal extra-axial mass continues to have mass effect on the adjacent brain parenchyma. 3. Focal osseous erosions involving the midline and left frontal bone are stable compared with the prior exam. Dictated by: Lucy Richardson MD, PhD on 05/10/2019 at 12:58 Approved by: Lucy Richardson MD, PhD on 05/10/2019 at 13:04 MRI brain: Radiologist's impression: [address] [address] Magnetic Resonance Report Signed Patient: Izaiah Hassan WMR#: [id number] : 1960Acct:[id number] Age/Sex: 58 / MDate of Service: 05/10/19 Loc: ED Accession Number: [id number] Procedure: MR head/brain wo/w con Ordering Provider: Jacki Howell D.O. PROCEDURE: MR HEAD/BRAIN WO/W CON INDICATIONS: Right hand weakness, known hcc metastases. TECHNIQUE: Noncontrast axial T1 spin echo, axial T2 fast spin echo, sagittal and axial FLAIR, coronal T2 fast spin echo, axial gradient echo, axial diffusion and ADC through the brain. After the administration of contrast, axial and coronal 3D VIBE or T1 spin echo with fat saturation through the brain. COMPARISON: [facility], CT, CT HEAD/BRAIN WO CON, 05/10/2019, 12:43. [facility], CT, CT HEAD/BRAIN WO CON, 04/11/2019, 0:47. FINDINGS: Image quality: Excellent. CSF Spaces: Basal cisterns are patent. No extra-axial fluid collections. Ventricles are normal in size and shape. Brain: There is mass effect in the frontal lobes near the vertex at midline from the large extra-axial or skull mass. No midline shift. No intracranial bleeds or masses. No abnormal intracranial enhancement. The brainstem appears normal. Diffusion- weighted images demonstrate no acute ischemic insults. No chronic ischemic insults. Normal intravascular flow voids are present. Skull and face: There is a large, extra-axial, heterogeneously enhancing mass centered in the frontal bone at midline near the vertex measuring 5.2 cm anteroposterior, 4.7 cm transverse and 2.7 cm cephalocaudal. The mass demonstrates mass effect and compression of the frontal lobes. A smaller enhancing mass is present in the left frontal bone measuring 1.2 x 2.1 x 0.9 cm. Sinuses: Sinuses and mastoids appear clear. IMPRESSION: 1. A large 5.2 x 4.7 x 2.7 cm extra-axial, heterogeneously enhancing mass c entered in the frontal bone at midline near the vertex. There is significant mass effect with compression of the frontal lobes bilaterally. A smaller mass is present in the left frontal bone measuring 1.2 x 2.1 x 0.9 cm. Both lesions are unchanged in size. Both lesions are stable in size. 2. No acute intracranial abnormalities other than significant mass effect to the frontal lobes by the large extra axial mass as described above. Result was discussed with Dr. Howell. Dictated by: Lucho Barron M.D. on 05/10/2019 at 16:32 Approved by: Lucho Barron M.D. on 05/10/2019 at 16:50 ECG Data Attestation: I personally reviewed and interpreted this ECG as follows: Prior ECG tracings: available for review Interpretation: Sinus rhythm with frequent PVCs, rate of 71 P 157 QRS 89 QTC 398. Patient has full bit ST depression in V4, [address] elevation apprecia alyson. Patient has prior from 04/11/2019 with similar PVCs and ST segments appear similar. MDM Narrative Medical decision making narrative: Patient gave me permission to contact Dr. Angeline Mejia to discuss his care. Spoke with Dr. Bateman, we discussed that they would refer him to radiation either Dr. low or weight, increase his steroids to 4 mg q.i.d. from 4 mg t.i.d. and 4 able to get an MRI with and without contrast would be helpful. Discussed with patient he is willing to stay. I also spoke with Dr. Angeline momin and she will help make sure the patient is getting appropriate follow-up and taper him down on his dexamethasone. Referral given to Dr. Alex bellamy as well as the radiation oncology doctors. Patient expressed understanding. He would like to return home. He has intermittent low oxygen readings, he states he has been told this before. He states it doesn't bother him to much and plan to follow up. Discharge Plan Departure Patient Disposition: Home Clinical Impression: Weakness of right hand Discharge Date/Time: 05/10/19 17:38 Interventions: ED Discharge Assessment Last Done: 05/10/19 17:37 Activity Restrictions/Additional Instructions: Follow up with your physician in the next 24 hours. Call for follow up with the oncology team and radiation oncologist. Continue home medications as prescribed. Increase your dexamethasone from 4 mg 3 times daily to 4 mg 4 times daily Return to ER for fevers greater than 100.4F, new or worsening neurologic changes, new chest pain, shortness of breath, sudden vision changes, difficulty with speech, new weakness or difficulty with ambulation, persistent vomiting or other new or concerning symptoms. Prescriptions: New dexamethasone 4 mg tablet 4 mg PO QID Qty: 40 RF: 0 No Action albuterol sulfate 90 mcg/actuation HFA aerosol inhaler 2 puff inhalation Q6H PRN (Reason: Wheezing) RF: 0 multivitamin [Daily-Hernan] tablet 1 tab PO DAILY RF: 0 fluconazole 100 mg tablet 100 mg PO DAILY RF: 0 buspirone 5 mg tablet 5 mg PO BID RF: 0 fentanyl 50 mcg/hr patch 72 hour 50 mcg/hr transdermal SEEINSTR RF: 0 fluconazole 200 mg tablet 200 mg PO DAILY RF: 0 clopidogrel 75 mg tablet 75 mg PO DAILY RF: 0 dronabinol 2.5 mg capsule 2.5 mg PO BID RF: 0 fentanyl 100 mcg/hr patch 72 hour See Rx Instructions .ROUTE .COMPLEX RF: 0 folic acid 1 mg tablet 1 mg PO DAILY RF: 0 zolpidem 5 mg tablet 5 mg PO BEDTIME RF: 0 gabapentin 100 mg capsule 300 mg PO BEDTIME RF: 0 fentanyl 25 mcg/hr patch 72 hour 25 mcg/hr transdermal SEEINSTR RF: 0 duloxetine 30 mg capsule,delayed release(DR/EC) 30 mg PO DAILY RF: 0 duloxetine 60 mg capsule,delayed release(DR/EC) 60 mg PO DAILY RF: 0 dexamethasone 4 mg tablet 4 mg PO TID RF: 0 polyethylene glycol 3350 17 gram/dose powder 17 g PO PRN PRN (Reason: Constipation) RF: 0 oxycodone 20 mg tablet 20 mg PO Q4H RF: 0 Referrals: Eduar Bateman MD [Physician] - Angeline Mejia MD [Primary Care Provider] - Hilario Low MD [Non-Staff] -
[2019-05-10 13:22] LABS: Blood Urea Nitrogen 11 mg/dL (9-20); Carbon Dioxide 26 mmol/L (22-32); Chloride 100 mmol/L (98-107); Estimated Glomerular Filt Rate > 60.0 mL/min (>60); Glucose 111 mg/dL (70-100); HEMOLYSIS < 15 (0-50); Potassium 3.7 mmol/L (3.4-5.1); Sodium 132 mmol/L (137-145)
--- NOTE | 2019-05-10 13:56 | DI.MRI.S_ITS ---
PROCEDURE: MR HEAD/BRAIN WO/W CON INDICATIONS: Right hand weakness, known hcc metastases. TECHNIQUE: Noncontrast axial T1 spin echo, axial T2 fast spin echo, sagittal and axial FLAIR, coronal T2 fast spin echo, axial gradient echo, axial diffusion and ADC through the brain. After the administration of contrast, axial and coronal 3D VIBE or T1 spin echo with fat saturation through the brain. COMPARISON: [facility], CT, CT HEAD/BRAIN WO CON, 05/10/2019, 12:43. [facility], CT, CT HEAD/BRAIN WO CON, 04/11/2019, 0:47. FINDINGS: Image quality: Excellent. CSF Spaces: Basal cisterns are patent. No extra-axial fluid collections. Ventricles are normal in size and shape. Brain: There is mass effect in the frontal lobes near the vertex at midline from the large extra-axial or skull mass. No midline shift. No intracranial bleeds or masses. No abnormal intracranial enhancement. The brainstem appears normal. Diffusion-weighted images demonstrate no acute ischemic insults. No chronic ischemic insults. Normal intravascular flow voids are present. Skull and face: There is a large, extra-axial, heterogeneously enhancing mass centered in the frontal bone at midline near the vertex measuring 5.2 cm anteroposterior, 4.7 cm transverse and 2.7 cm cephalocaudal. The mass demonstrates mass effect and compression of the frontal lobes. A smaller enhancing mass is present in the left frontal bone measuring 1.2 x 2.1 x 0.9 cm. Sinuses: Sinuses and mastoids appear clear. IMPRESSION: 1. A large 5.2 x 4.7 x 2.7 cm extra-axial, heterogeneously enhancing mass centered in the frontal bone at midline near the vertex. There is significant mass effect with compression of the frontal lobes bilaterally. A smaller mass is present in the left frontal bone measuring 1.2 x 2.1 x 0.9 cm. Both lesions are unchanged in size. Both lesions are stable in size. 2. No acute intracranial abnormalities other than significant mass effect to the frontal lobes by the large extra axial mass as described above. Result was discussed with Dr. Howell. Dictated by: Lucho Barron M.D. on 05/10/2019 at 16:32 Approved by: Lucho Barron M.D. on 05/10/2019 at 16:50
== END 2019-05-10 17:38 | disposition home or self-care (01) ==
PROVIDERS: Emergency Provider Emergency Medicine; PCP Internal Medicine
DX: R29.898 Other symptoms and signs involving the musculoskeletal system (principal); R20.0 Anesthesia of skin; C22.0 Liver cell carcinoma; C79.31 Secondary malignant neoplasm of brain; Z95.1 Presence of aortocoronary bypass graft; Z86.73 Personal history of transient ischemic attack (TIA), and cerebral infarction without residual deficits
CPT/HCPCS: 36591; 70450; 70553; 80048; 85025; 85610; 85730; 93005; 96361; 96374; 96375; 99284; 99285; A9579; J1100; J2405

== ENCOUNTER → 2019-05-25 15:02 | Oncology outpatient (ONC) | payer OTHER, MEDICAID, SELFPAY ==
[2019-05-25 15:56] VITALS: BP 130/87; PULSE 64; RESP 20; TEMP 36.4; O2SAT 94
--- NOTE | 2019-05-25 17:32 | ONC.CONS ---
History of Present Illness - Data of Consult Consult date: 05/25/19 Primary Care Provider: Angeline Mejia MD - Consult Narrative Narrative: Diagnosis: Metastatic hepatocellular carcinoma Previous treatment: 1. lenvatinib beginning in January 2019 2. Radiation therapy for skin metastasis finishing in March 2019 History of present illness: Izaiah Hassan is a 58 year old male who is referred for ongoing treatment of metastatic hepatocellular carcinoma. He reports that he was initially diagnosed in January of this year. He had presented with relatively acute onset of severe pain in the right upper quadrant with radiation to the back into the right shoulder. He had a CT scan done that demonstrated a mass in the liver suggestive of hepatocellular carcinoma. The liver showed multiple enhancing nodules in both lobes. There was a masslike area measuring 7.5 x 3.9 cm extending through the capsule of the liver. There was increasing amount of perihepatic fluid. He did have evidence of cirrhosis and splenomegaly. There were multiple abnormally enlarged lymph nodes in the central upper abdomen. His AFP was 186. This was confirmed by biopsy on January 31. He started treatment with lenvatinib sometime in January. Shortly thereafter, he noticed some increasing masses on his forehead and the top of his head. 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 He was treated with steroids and radiation with decrease in the size of those masses. For pain control, he had been using fentanyl patches as well as oxycodone for breakthrough pain. He has been on stable doses of dexamethasone. He moved to [facility] about 6 weeks ago to be closer to his brothers. Since his arrival, he has been feeling about the same but did notice relatively acute onset of right hand weakness. Because of this, he was seen in the emergency room. He was found 2 masses in the frontal bones but no intracranial disease. He has been maintained on dexamethasone. He notes that this has not helped his hand weakness. Today, he complains of ongoing pain. It is located primarily in the upper abdomen and shoulder area. He has been using fentanyl patch and oxycodone which is providing adequate relief. He needs about 3 breakthrough tablets a day. His appetite has been low but his weight has been stable. He denies any nausea or vomiting. He has not had any unusual bleeding or bruising. He does have occasional headaches. No seizures. He has been tolerating his oral chemotherapy without too much difficulty and denies any diarrhea or abdominal cramping. He has had rash particularly on his hands and feet with some blistering and peeling. His past medical history is otherwise notable for hepatitis C with cirrhosis. He has a history of coronary artery disease and has had prior bypass as well as multiple stenting. He has a history of COPD. Hypertension. His chart lists a history of a DVT. Family history is negative for malignancy. Social history: He is single. He does smoke cigarettes but has been working on trying to quit. He has a history of significant alcohol use but is not currently drinking. CC: Eduar Bateman MD Home Medications and Allergies Home Medications Medication Instructions Recorded Confirmed Type albuterol sulfate 2 puff INHALATION Q6H PRN 04/11/19 04/11/19 History buspirone 5 mg PO BID 04/11/19 04/11/19 History clopidogrel 75 mg PO DAILY 04/11/19 04/11/19 History dexamethasone 4 mg PO TID 04/11/19 04/11/19 History dronabinol 2.5 mg PO BID 04/11/19 04/11/19 History duloxetine 30 mg PO DAILY 04/11/19 04/11/19 History duloxetine 60 mg PO DAILY 04/11/19 04/11/19 History fentanyl 25 mcg/hr TRANSDERMAL SEEINSTR 04/11/19 04/11/19 History fentanyl 50 mcg/hr TRANSDERMAL SEEINSTR 04/11/19 04/11/19 History fentanyl See Rx Instructions .ROUTE .COMPLEX 04/11/19 04/11/19 History fluconazole 100 mg PO DAILY 04/11/19 04/11/19 History fluconazole 200 mg PO DAILY 04/11/19 04/11/19 History folic acid 1 mg PO DAILY 04/11/19 04/11/19 History gabapentin 300 mg PO BEDTIME 04/11/19 04/11/19 History multivitamin [Daily-Hernan] 1 tab PO DAILY 04/11/19 04/11/19 History oxycodone 20 mg PO Q4H 04/11/19 04/11/19 History polyethylene glycol 3350 17 g PO PRN PRN 04/11/19 04/11/19 History zolpidem 5 mg PO BEDTIME 04/11/19 04/11/19 History dexamethasone 4 mg PO QID #40 tab 05/10/19 Rx Lenvima 36 mg DAILY 05/25/19 05/25/19 History baclofen 20 mg PO TID 05/25/19 05/25/19 History esomeprazole magnesium 40 mg PO DAILY 05/25/19 05/25/19 History lisinopril 5 mg DAILY 05/25/19 05/25/19 History metoprolol succinate 50 mg PO BID 05/25/19 05/25/19 History pramipexole 0.25 mg PO TID 05/25/19 05/25/19 History Allergies Allergy/AdvReac Type Severity Reaction Status Date / Time No Known Drug Allergies Allergy Verified 05/10/19 12:29 Medical History - Medical, Surgical, Family History Medical History: Medical History (Updated 05/25/19 @ 17:45 by Eduar Bateman MD) CVA (cerebral vascular accident) Hepatitis C Hepatocellular carcinoma History of stroke Liver cirrhosis Surgical History: Surgical History (Updated 05/25/19 @ 17:45 by Eduar Bateman MD) S/P CABG x 3 - Social History Smoking Status: Current some day smoker Review of Systems Constitutional: poor state of general health, decreased activity level Eyes: no change in vision Ears, nose, mouth, throat: headaches, lightheadedness Cardiovascular: chest pain, dyspnea on exertion Respiratory: cough Gastrointestinal: change in appetite, abdominal pain, no constipation Integumentary: rash Exam Vital signs: Vital Signs Temp Pulse Resp BP Pulse Ox 05/25/19 15:56 97.6 F 64 20 130/87 94 Intake and Output 05/25/19 05/25/19 05/25/19 07:59 15:59 23:59 Other: Weight 82 kg Patient Weight 05/25/19 23:59 Weight 82 kg - Constitutional positive no acute distress, positive average body habitus, positive chronically ill appearing - Routine HEENT Exam Head: Present: normocephalic, atraumatic Eye: Present: EOMI, PERRL. Absent: conjunctival icterus, scleral injection ENT: Present: mucous membranes moist, oropharynx clear Comments: He does have about a 2-1/2 cm nodule on the top of his skull. It is nontender. There is no erythema. - Routine Neck Exam Present: supple. Absent: lymphadenopathy, thyromegaly - Routine Chest/Breast/Axilla Exam Axillae: Absent: lymphadenopathy - Routine Respiratory Exam Present: Clear to auscultation bilaterally. Absent: rales, wheezes - Routine Cardiovascular Exam Present: RRR, S1, S2. Absent: murmur - Routine Abdominal Exam Present: soft, normoactive bowel sounds, organomegaly Comments: He does have some tenderness to palpation in the right upper quadrant. The liver edge is palpable about 3-4 finger breaths below the costal margin. - Routine Extremities Exam Absent: cyanosis, clubbing, edema - Routine Back/Spine Exam Back/Spine: Absent: vertebral tenderness - Routine Skin Exam Present: intact, rash. Absent: petechiae Comments: He has some erythema of the skin particularly in the hands and feet. - Routine Neurological Exam Present: alert, oriented X3 He has weakness of muscles in the forearm and hand particularly with extension of the fingers and wrist. - Routine Psychiatric Exam Present: normal affect, normal thought process Assessment and Plan (1) Hepatocellular carcinoma Current visit: Yes Status: Acute 58-year-old man with a history of hepatitis C and cirrhosis with metastatic hepatocellular carcinoma. He has had his skull lesions previously radiated and has been treated with lenvatinib which she is tolerating adequately. He does have some cutaneous toxicity but otherwise seems to be doing okay with it. It is not clear whether he is responding or not. We will plan on scheduling a CT scan of the chest abdomen pelvis. He will also need an MRI of the cervical and thoracic spine to rule out nerve damage causing weakness in his right hand. If his disease is stable or improved, he will continue with his current regimen. If he has evidence of progression could be may need to consider her immunotherapy. He will return to clinic in about 2 weeks or so for follow-up.
== END ==
LOC: ONC 15:09
PROVIDERS: PCP Internal Medicine
DX: C22.0 Liver cell carcinoma (principal); K74.60 Unspecified cirrhosis of liver; B19.20 Unspecified viral hepatitis C without hepatic coma; I25.10 Atherosclerotic heart disease of native coronary artery without angina pectoris; Z95.1 Presence of aortocoronary bypass graft; Z95.5 Presence of coronary angioplasty implant and graft; J44.9 Chronic obstructive pulmonary disease, unspecified; F17.210 Nicotine dependence, cigarettes, uncomplicated; Z86.718 Personal history of other venous thrombosis and embolism; Z86.73 Personal history of transient ischemic attack (TIA), and cerebral infarction without residual deficits
CPT/HCPCS: 99205; 99215

== ENCOUNTER → 2019-06-01 15:36 | Outpatient (CLI) | payer OTHER, MEDICAID, SELFPAY ==
--- NOTE | 2019-06-01 15:38 | DI.CT.S_ITS ---
PROCEDURE: CT CHEST ABD PEL W CON INDICATIONS: f/u hepatocellular carcinoma TECHNIQUE: After the administration of oral and intravenous contrast, 5 mm thick sections acquired from the lung apices to the symphysis. 5 mm coronal and sagittal reformats were performed, with additional 7 mm coronal MIP reformats through the lungs. For radiation dose reduction, the following was used: automated exposure control, adjustment of mA and/or kV according to patient size. COMPARISON: None. FINDINGS: Image quality: Excellent. CHEST: Lungs and pleura: No pleural effusion or pneumothorax. There multiple bilateral pulmonary nodules, largest of which seen in the posterior right lower lobe measuring 4.0 cm. Some of these demonstrate surrounding ground glass attenuation however most concerning for bronchogenic malignancy/metastatic disease. (Please see montage image for numerous bilateral lesions) Upper lobe predominant centrilobular emphysema. Elsewhere, no acute consolidation. Scattered scarring and atelectasis. Calcified granuloma seen in the left lung base measuring 1.2 cm. Mediastinum: Heart size is normal. Coronary artery calcifications are present. No pericardial effusion. No mediastinal or hilar adenopathy by size criteria. Thoracic aorta and central pulmonary arteries are normal in size. Esophagus is normal in caliber. No hiatal hernia. Chest wall: No axillary or supraclavicular adenopathy by size criteria. Thyroid gland negative. ABDOMEN: Solid organs: Innumerable hypoattenuating ill-defined hyperdense lesions seen throughout the left and right lobes of liver. There is a cirrhotic, nodular contour of the liver. At the posterior segment, there is possible chest wall invasion seen on image 66 series 2. There is poor contrast opacification of the left portal vein which may be thrombosed. Gallbladder wall thickening although this finding technically age-indeterminate. No radiopaque cholelithiasis.. Biliary system is non dilated. Pancreas enhances normally. Spleen is normal in size and enhancement. No adrenal nodules. No hydronephrosis number poorly defined hypoattenuating lesion seen in the interpolar right kidney measuring 2.2 cm image 87 series 2 probable subcentimeter cyst involving the upper pole left kidney although technically too small to characterize accurately. Peritoneum and bowel: There is long segment right colonic wall thickening, potentially infectious or inflammatory colitis although cannot exclude colonic malignancy. No free fluid or air. Nodes and vessels: No retroperitoneal or mesenteric adenopathy by size criteria. Aorta and inferior vena cava are normal in size. Fat containing umbilical hernia PELVIS: Genitourinary: Partially decompressed bladder, grossly unremarkable Miscellaneous: No inguinal hernias or adenopathy. Bones: Diffuse heterogeneous appearance of the marrow, without definite lytic lesion however focal marrow change involving the posterior medial right ilium on image 104. Overall, possible infiltrative marrow metastases. IMPRESSION: Multiple bilateral pulmonary nodules, largest of which seen in the right lower lobe. This is concerning for bronchogenic malignancy and or metastatic disease. Innumerable lesions seen throughout the left and right lobes liver probably reflecting multifocal HCC. Background cirrhosis. Tumor or bland thrombosis of the right portal vein. There is also right posterior chest wall invasion adjacent to the right hepatic lobe. Long segment right colonic wall thickening, potentially nonspecific colitis of the cannot exclude colonic neoplasm. Heterogeneous appearance of the marrow although no definite lytic lesion seen at this time. Nonetheless findings raise the possibility of early osseous metastases. Further evaluation could be considered with bone scan. Ill-defined lesion involving the interpole of the right kidney. Neoplasm cannot be excluded. Differential includes focal pyelonephritis although probably less likely given the absence of adjacent perinephric stranding. Recommend clinical correlation and surgical consultation/management. Dictated by: Dashawn Rg M.D. on 06/02/2019 at 13:45 Approved by: Dashawn Rg M.D. on 06/02/2019 at 14:00
[2019-06-01 16:17] LABS: Hematocrit 53.6 % (41-53); Hemoglobin 18.5 g/dL (13.5-17.5); Mean Corpuscular HGB Conc 34.4 % (30-36); Mean Corpuscular Hemoglobin 32.8 PG (26-34); Mean Corpuscular Volume 95.4 fL (80-100); Platelet Count 67 X10^3/uL (150-400); Red Blood Cell Count 5.62 X10^6/uL (4.5-5.9); Red Cell Distribution Width 16.9 % (11.6-14.8); White Blood Cell Count 13.5 X10^3/uL (4.5-11.0)
[2019-06-01 16:18] LABS: Add Manual Diff / Slide Review YES
[2019-06-01 16:48] LABS: Anisocytosis 1+; Neutrophils Absolute Manual 12825 /uL (3000-5900); Total Cells Counted 100
[2019-06-01 17:07] LABS: Alanine Aminotransferase 205 IU/L (21-72); Albumin 3.2 g/dL (3.5-5.0); Albumin Globulin Ratio 0.9 (1.0-2.8); Alkaline Phosphatase 444 U/L (38-126); Aspartate Aminotransferase 269 IU/L (17-59); BUN Creatinine Ratio 41.7 (6-22); Bilirubin Total 2.3 mg/dL (0.2-1.3); Blood Urea Nitrogen 25 mg/dL (9-20); Calcium 8.5 mg/dL (8.4-10.2); Carbon Dioxide 28 mmol/L (22-32); Chloride 93 mmol/L (98-107); Estimated Glomerular Filt Rate > 60.0 mL/min (>60); Globulin 3.5 g/dL (1.7-4.1); Glucose 115 mg/dL (70-100); HEMOLYSIS < 15 (0-50); Potassium 5.3 mmol/L (3.4-5.1); Sodium 130 mmol/L (137-145); Total Protein 6.7 g/dL (6.3-8.2)
[2019-06-04 16:54] LABS: Alpha Fetoprotein 408.8 ng/mL (< 6.1)
== END ==
PROVIDERS: PCP Internal Medicine
DX: R91.8 Other nonspecific abnormal finding of lung field (principal); C22.0 Liver cell carcinoma; N28.9 Disorder of kidney and ureter, unspecified
CPT/HCPCS: 36415; 71260; 74177; 80053; 82105; 85025

== ENCOUNTER 2019-06-04 11:02 | Emergency (ER) | payer OTHER, MEDICAID, SELFPAY ==
[2019-06-04] VITALS (43 sets, daily range): BP systolic 77–150; BP diastolic 44–87; PULSE 130–165; RESP 10–40; TEMP 32–39.3; O2SAT 87–98; BMI 23.6
--- NOTE | 2019-06-04 11:14 | ED.SOB ---
HPI - SOB/Dyspnea General Chief Complaint: Shortness of Breath/Dyspnea Stated Complaint: TROUBLE BREATHING Time Seen by Provider: 06/04/19 11:08 Source: patient Mode of arrival: ambulatory Limitations: no limitations History of Present Illness Patient is a 58-year-old male. 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 He is currently undergoing chemotherapy. He is also on daily steroids. Please see the oncology note from earlier this month for details. He arrives today for chest pain that occurred last night. Shortness of breath. He states the symptoms been going on for about the past week but have worsened and he could not take it anymore. He is not on oxygen at home. Related Data Home Medications Medication Instructions Recorded Confirmed albuterol sulfate 2 puff INHALATION Q6H PRN 04/11/19 04/11/19 buspirone 5 mg PO BID 04/11/19 04/11/19 clopidogrel 75 mg PO DAILY 04/11/19 04/11/19 dexamethasone 4 mg PO TID 04/11/19 04/11/19 dronabinol 2.5 mg PO BID 04/11/19 04/11/19 duloxetine 30 mg PO DAILY 04/11/19 04/11/19 duloxetine 60 mg PO DAILY 04/11/19 04/11/19 fentanyl 25 mcg/hr TRANSDERMAL SEEINSTR 04/11/19 04/11/19 fentanyl 50 mcg/hr TRANSDERMAL SEEINSTR 04/11/19 04/11/19 fentanyl See Rx Instructions .ROUTE .COMPLEX 04/11/19 04/11/19 fluconazole 100 mg PO DAILY 04/11/19 04/11/19 fluconazole 200 mg PO DAILY 04/11/19 04/11/19 folic acid 1 mg PO DAILY 04/11/19 04/11/19 gabapentin 300 mg PO BEDTIME 04/11/19 04/11/19 multivitamin [Daily-Hernan] 1 tab PO DAILY 04/11/19 04/11/19 oxycodone 20 mg PO Q4H 04/11/19 04/11/19 polyethylene glycol 3350 17 g PO PRN PRN 04/11/19 04/11/19 zolpidem 5 mg PO BEDTIME 04/11/19 04/11/19 Lenvima 36 mg DAILY 05/25/19 05/25/19 baclofen 20 mg PO TID 05/25/19 05/25/19 esomeprazole magnesium 40 mg PO DAILY 05/25/19 05/25/19 lisinopril 5 mg DAILY 05/25/19 05/25/19 metoprolol succinate 50 mg PO BID 05/25/19 05/25/19 pramipexole 0.25 mg PO TID 05/25/19 05/25/19 Previous Rx's Medication Instructions Recorded dexamethasone 4 mg PO QID #40 tab 05/10/19 Allergies Allergy/AdvReac Type Severity Reaction Status Date / Time No Known Drug Allergies Allergy Verified 06/04/19 11:11 Review of Systems Constitutional Denies fever(s) and Denies headache(s) ENT Ears, Nose, Mouth, and Throat: Denies headache(s) Cardiovascular Reports chest pain and Reports dyspnea Respiratory Denies cough and Reports dyspnea Gastrointestinal Gastrointestinal: Reports abdominal pain Musculoskeletal Denies myalgias and Denies arthralgias Integumentary/Breasts Denies rash Neurologic Denies headache(s) Hematologic/Lymphatic Denies easy bleeding and Denies easy bruising Comments: Not on anticoagulation [facility] Medical History CVA (cerebral vascular accident) (Acute) Hepatitis C (Acute) Hepatocellular carcinoma (Acute) History of stroke (Acute) Liver cirrhosis (Acute) Social History household members: spouse Smoking Status: Current some day smoker Exam Initial Vital Signs Initial Vital Signs: Vital Signs Pulse Rate 143 H 06/04/19 11:05 Respiratory Rate 38 H 06/04/19 11:05 Blood Pressure 105/76 06/04/19 11:05 Pulse Oximetry 88 L 06/04/19 11:05 Const General: cooperative, No comfortable, well groomed and ill appearing Orientation: alert, awake and oriented x3 Resp Effort & Inspection: labored and tachypneic Auscultation: clear to auscultation bilaterally Cardio Rate: tachycardic Rhythm: regular rhythm Pulses: radial pulses present GI Inspection: distended Palpation: soft and tender (Diffuse) Skin General: mottling Neuro General: alert, awake and oriented x3 Cognition: normal cognition Extrem General: normal to inspection, capillary refill normal and edema (1+ bilateral pitting edema) Psych Appearance: grossly normal and well kempt Procedures Intubation Time out performed: Yes sedative: Etomidate Mg Given: 20 paralytic: Succinylcholine Mg Given: 120 Laryngoscope: fiber optic video scope ET Tube Size: 8 ET Tube Uncuffed: Yes Tube Secured Depth (cm): 23 Tube Secured Location: teeth Tube Placement Confirmation: Visualized tube passing through cords, Equal breath sounds bilaterally, No breath sounds over epigastrium, Confirmation by capnometry and Chest Xray Patient Tolerated Procedure: Well and No complications Intubation Complications: none Course Orders Ordered: ED Orders 06/04/19 11:09 EKG-12 Lead Stat 06/04/19 11:19 CT angio chest PE protocol Stat 06/04/19 12:00 B Type Natriuretic Peptide Stat Complete Blood Count AUTO DIFF Stat Partial Thromboplastin Time Stat Prothrombin Time INR Stat 06/04/19 12:35 Blood Culture Stat Comprehensive Metabolic Panel Stat Lactate (Lactic Acid) Stat Lipase Stat Procalcitonin Stat Troponin I Stat 06/04/19 13:03 Arterial Blood Gas Stat 06/04/19 13:40 Endotracheal tube suction As needed 06/04/19 13:43 Chest [XR chest 1V] Stat 06/04/19 14:40 Urinalysis and Microscopic Stat 06/04/19 15:12 XR chest 1V Stat Arterial Blood Gas Stat Fentanyl (Sublimaze) 28 mcg 0.35 mcg/kg (28 mcg) IV Q1HR PRN PRN Reason: Pain, Severe (7-10) Sodium Chloride (Normal Saline 0.9%) 1,000 mls @ 125 mls/hr IV CONT MATTY Last Infusion: 06/04/19 12:31 Dose: 0 mls/hr Admin: 06/04/19 11:35 Dose: 999 mls/hr Sodium Chloride (Normal Saline 0.9%) 1,000 mls @ 150 mls/hr IV CONT MATTY Last Admin: 06/04/19 13:06 Dose: 150 mls/hr Fentanyl 1,000 mcg/ Dextrose 270 mls @ 15.35 mls/hr IV TITRATE MATTY; Protocol Last Titration: 06/04/19 14:35 Dose: 1 mcg/kg/hr, 21.92 mls/hr Admin: 06/04/19 14:20 Dose: 0.7 mcg/kg/hr, 15.35 mls/hr Midazolam HCl 50 mg/ Dextrose 250 mls @ 25 mls/hr IV TITRATE MATTY; Protocol Last Admin: 06/04/19 14:20 Dose: 5 mg/hr, 25 mls/hr Discontinued Medications Acetaminophen (Tylenol) 650 mg AR NOW ONE Stop: 06/04/19 14:56 Last Admin: 06/04/19 14:59 Dose: 650 mg Dextrose (D50w) 25 gm IV NOW ONE Stop: 06/04/19 13:09 Last Admin: 06/04/19 13:08 Dose: 25 gm Etomidate (Amidate) 20 mg IV NOW ONE Stop: 06/04/19 13:39 Last Admin: 06/04/19 13:49 Dose: 20 mg Fentanyl (Sublimaze) 50 mcg IV NOW ONE Stop: 06/04/19 13:58 Last Admin: 06/04/19 14:05 Dose: 50 mcg Fentanyl (Sublimaze) 50 mcg IV NOW ONE Stop: 06/04/19 14:45 Last Admin: 06/04/19 14:45 Dose: 50 mcg Ceftriaxone Sodium/Dextrose (Rocephin) 1 gm in 50 mls @ 100 mls/hr IV NOW ONE Stop: 06/04/19 12:41 Last Infusion: 06/04/19 13:07 Dose: 0 mls/hr Admin: 06/04/19 12:31 Dose: 100 mls/hr Azithromycin 500 mg/ Dextrose 250 mls @ 250 mls/hr IV NOW ONE Stop: 06/04/19 12:13 Last Infusion: 06/04/19 13:32 Dose: 0 mls/hr Admin: 06/04/19 12:31 Dose: 250 mls/hr Midazolam HCl (Versed) 4 mg IV NOW ONE Stop: 06/04/19 14:00 Last Admin: 06/04/19 14:43 Dose: Not Given Succinylcholine Chloride (Quelicin) 120 mg IV NOW ONE Stop: 06/04/19 13:41 Last Admin: 06/04/19 13:49 Dose: 120 mg Vital Signs - 8 hr 06/04/19 11:05 06/04/19 11:09 06/04/19 11:10 Temperature 98.6 F Pulse Rate 143 H 148 H 145 H Respiratory Rate 38 H 40 H 40 H Blood Pressure 105/76 Blood Pressure [Left Arm] 105/76 100/68 Pulse Oximetry 88 L 89 L 91 06/04/19 11:20 06/04/19 11:35 06/04/19 11:40 Temperature Pulse Rate 146 H 142 H 141 H Respiratory Rate 38 H 36 H Blood Pressure Blood Pressure [Left Arm] 100/68 119/56 L 121/69 Pulse Oximetry 90 L 94 96 06/04/19 11:58 06/04/19 12:00 06/04/19 12:05 Temperature Pulse Rate 144 H 142 H Respiratory Rate 35 H 33 H Blood Pressure 123/64 Blood Pressure [Left Arm] 117/75 115/75 Pulse Oximetry 95 97 06/04/19 12:15 06/04/19 12:19 06/04/19 12:20 Temperature Pulse Rate 148 H 150 H 148 H Respiratory Rate 33 H 28 H 33 H Blood Pressure Blood Pressure [Left Arm] 112/64 122/56 L 117/61 Pulse Oximetry 96 95 95 06/04/19 12:25 06/04/19 12:30 06/04/19 12:35 Temperature Pulse Rate 150 H 152 H 152 H Respiratory Rate 33 H 33 H 34 H Blood Pressure Blood Pressure [Left Arm] 91/60 95/67 104/66 Pulse Oximetry 96 97 94 06/04/19 13:10 06/04/19 13:30 06/04/19 13:35 Temperature Pulse Rate 159 H 159 H Respiratory Rate 37 H 38 H Blood Pressure 105/67 Blood Pressure [Left Arm] 111/87 101/69 Pulse Oximetry 91 91 06/04/19 13:40 06/04/19 13:50 06/04/19 14:30 Temperature Pulse Rate 161 H 165 H 141 H Respiratory Rate 37 H 38 H 22 Blood Pressure Blood Pressure [Left Arm] 107/83 98/69 89/54 L Pulse Oximetry 92 96 93 06/04/19 14:45 06/04/19 14:51 06/04/19 14:59 Temperature 100.0 F H 102.7 F H Pulse Rate 143 H Respiratory Rate 22 Blood Pressure Blood Pressure [Left Arm] 91/58 L Pulse Oximetry 92 06/04/19 15:14 Temperature Pulse Rate 147 H Respiratory Rate 39 H Blood Pressure Blood Pressure [Left Arm] 100/68 Pulse Oximetry 91 MDM - SOB/Dyspnea Medical Records Attestation: I reviewed the patient's medical records. Lab Data Attestation: I reviewed the patient's lab results. Result diagrams: 06/04/19 12:00 06/04/19 12:35 Lab Results 06/04/19 06/04/19 06/04/19 Range/Units 12:00 12:00 12:35 WBC 4.1 L (4.5-11.0) X10^3/uL RBC 5.20 (4.5-5.9) X10^6/uL Hgb 16.7 (13.5-17.5) g/dL Hct 49.3 (41-53) % MCV 94.8 (80-100) fL MCH 32.1 (26-34) PG MCHC 33.9 (30-36) % RDW 16.8 H (11.6-14.8) % Plt Count 62 L (150-400) X10^3/uL Neut % (Auto) Not Reportable Lymph % (Auto) Not Reportable [place] % (Auto) Not Reportable Eos % (Auto) Not Reportable Baso % (Auto) Not Reportable Neut # (Auto) Not Reportable Lymph # (Auto) Not Reportable [place] # (Auto) Not Reportable Eos # (Auto) Not Reportable Baso # (Auto) Not Reportable Total Counted 100 Seg Neutrophils % 37.0 L (38-70) % Band Neutrophils % 47.0 H (3-7) % Lymphocytes % (Manual) 7.0 L (25-45) % Atypical Lymphs % 3.0 H ( - 0) % Monocytes % (Manual) 6.0 (2-11) % Neutrophils # (Manual) 3444 (4051-7191) /uL RBC Morphology Normal morphology PT 16.6 H (10.1-12.7) SECONDS INR 1.4 H (0.9-1.3) APTT 31 D (26.4-36.2) SECONDS ABG pH (7.35-7.45) ABG pCO2 (35-45) mmHg ABG pO2 (80-100) mmHg ABG HCO3 (22-26) mmol/L ABG Total CO2 (21-31) mmol/L ABG O2 Saturation (95-100) % ABG Base Excess (-2-2) mmol/L FiO2 Sodium 125 L (137-145) mmol/L Potassium 5.7 H (3.4-5.1) mmol/L Chloride 90 L (98-107) mmol/L Carbon Dioxide 27 (22-32) mmol/L BUN 38 H (9-20) mg/dL Creatinine 1.10 (0.66-1.25) mg/dL Estimated GFR > 60.0 (>60) mL/min BUN/Creatinine Ratio 34.5 H (6-22) Glucose 41 L* (70-100) mg/dL Lactate (0.7-2.1) mmol/L Calcium 8.0 L (8.4-10.2) mg/dL Total Bilirubin 3.6 H (0.2-1.3) mg/dL AST 308 H (17-59) IU/L ALT 138 H (21-72) IU/L Alkaline Phosphatase 281 H (38-126) U/L Troponin I 0.033 (0.01-0.034) ng/mL B-Natriuretic Peptide 186 H (<100) Total Protein 5.7 L (6.3-8.2) g/dL Albumin 2.6 L (3.5-5.0) g/dL Globulin 3.1 (1.7-4.1) g/dL Albumin/Globulin Ratio 0.8 L (1.0-2.8) Lipase 11 L (23-300) U/L Procalcitonin (<0.5) ng/mL 06/04/19 06/04/19 06/04/19 Range/Units 12:35 12:35 13:03 WBC (4.5-11.0) X10^3/uL RBC (4.5-5.9) X10^6/uL Hgb (13.5-17.5) g/dL Hct (41-53) % MCV (80-100) fL MCH (26-34) PG MCHC (30-36) % RDW (11.6-14.8) % Plt Count (150-400) X10^3/uL Neut % (Auto) Lymph % (Auto) [place] % (Auto) Eos % (Auto) Baso % (Auto) Neut # (Auto) Lymph # (Auto) [place] # (Auto) Eos # (Auto) Baso # (Auto) Total Counted Seg Neutrophils % (38-70) % Band Neutrophils % (3-7) % Lymphocytes % (Manual) (25-45) % Atypical Lymphs % ( - 0) % Monocytes % (Manual) (2-11) % Neutrophils # (Manual) (0241-1187) /uL RBC Morphology PT (10.1-12.7) SECONDS INR (0.9-1.3) APTT (26.4-36.2) SECONDS ABG pH 7.43 (7.35-7.45) ABG pCO2 28.1 L (35-45) mmHg ABG pO2 66 L (80-100) mmHg ABG HCO3 19 L (22-26) mmol/L ABG Total CO2 20 L (21-31) mmol/L ABG O2 Saturation 94 L (95-100) % ABG Base Excess -6.0 L (-2-2) mmol/L FiO2 40 Sodium (137-145) mmol/L Potassium (3.4-5.1) mmol/L Chloride (98-107) mmol/L Carbon Dioxide (22-32) mmol/L BUN (9-20) mg/dL Creatinine (0.66-1.25) mg/dL Estimated GFR (>60) mL/min BUN/Creatinine Ratio (6-22) Glucose (70-100) mg/dL Lactate 3.3 H (0.7-2.1) mmol/L Calcium (8.4-10.2) mg/dL Total Bilirubin (0.2-1.3) mg/dL AST (17-59) IU/L ALT (21-72) IU/L Alkaline Phosphatase (38-126) U/L Troponin I (0.01-0.034) ng/mL B-Natriuretic Peptide (<100) Total Protein (6.3-8.2) g/dL Albumin (3.5-5.0) g/dL Globulin (1.7-4.1) g/dL Albumin/Globulin Ratio (1.0-2.8) Lipase (23-300) U/L Procalcitonin 12.96 H (<0.5) ng/mL Point of Care Testing Glucose POC [address] scan - chest: Radiologist's impression: [address] [address] [address] Scan Report Signed Patient: Izaiah Hassan WMR#: [id number] : 1960Acct:[id number] Age/Sex: 58 / MDate of Service: 06/04/19 Loc: ED Accession Number: [id number] Procedure: CT angio chest PE protocol Ordering Provider: Pilo Bacon D.O. PROCEDURE: CT ANGIO CHEST PE PROTOCOL INDICATIONS: Chest pain, shortness of breath, tachycardia TECHNIQUE: After the administration of intravenous contrast, 2 mm thick sections acquired from the pulmonary apices to the posterior costophrenic angles. 3-dimensional maximum intensity projection (MIP) coronal and sagittal reformats were then acquired through the thorax. For radiation dose reduction, the following was used: automated exposure control, adjustment of mA and/or kV according to patient size. COMPARISON: [facility], CT, CT CHEST ABD PEL W CON, 06/01/2019, 16:34. FINDINGS: Image quality: Excellent. Pulmonary arteries: Pulmonary arteries are normal in size, and demonstrate no intraluminal filling defects to suggest central pulmonary embolism. Lungs and pleura: Bilateral pulmonary masses are seen, which are stable. Calcified granulomas are seen. Atelectasis is seen at the right lung base. No pleural effusions or pneumothorax. Central and peripheral airways are patent. Mediastinum: Post CABG changes are seen. Heart size is normal, without pericardial effusion. Borderline prominent mediastinal lymph nodes are seen. Likely enlarged right perihilar lymph nodes are seen, which are poorly evaluated. Thoracic aorta is normal in caliber and enhancement. Esophagus is normal in caliber, without hiatal hernia. Bones and chest wall: No suspicious bony lesions. Ribs and thoracic spine appear intact throughout. Age-appropriate bony degenerative changes are seen. Thyroid gland demonstrates no significant CT abnormality. No axillary or supraclavicular adenopathy. Abdomen: Numerous liver masses are seen, which are most prominent posteriorly. The visualized portions of the upper abdominal structures are otherwise unremarkable for imaging technique. IMPRESSION: Negative for pulmonary embolism. Bilateral pulmonary masses are again seen. The appearance is highly worrisome for metastatic disease. Liver masses are again seen. Borderline prominent mediastinal lymph nodes are seen. Likely enlarged right perihilar lymph nodes are seen, which are poorly evaluated. Incidental note is made of: Prior CABG Dictated by: Jad Bueno M.D. on 06/04/2019 at 10:54 Approved by: Jad Bueno M.D. on 06/04/2019 at 11:01 Post intubation chest x-ray: Radiologist's impression: [address] [address] XRay Report Signed Patient: Izaiah Hassan WMR#: [id number] : 1960Acct:[id number] Age/Sex: 58 / MDate of Service: 06/04/19 Loc: ED Accession Number: [id number] Procedure: XR chest 1V Ordering Provider: Pilo Bacon D.O. PROCEDURE: XR CHEST 1V INDICATIONS: post intubation TECHNIQUE: One view of the chest was acquired. COMPARISON: [facility], CT, CT CHEST ABD PEL W CON, 06/01/2019, 16:34. [facility], CT, CT ANGIO CHEST PE PROTOCOL, 06/04/2019, 11:22. FINDINGS: Surgical changes and devices: ET tube in satisfactory position, with its tip approximately 4.6 cm above the eva.. Lungs and pleura: Multiple pulmonary masses noted. No pleural effusions or pneumothorax. Mediastinum: Mediastinal contours appear normal. Heart size is normal. Bones and chest wall: No suspicious bony lesions. Overlying soft tissues appear unremarkable. IMPRESSION: ET tube in satisfactory position. Multiple pulmonary masses. Dictated by: Ivan Godwin M.D. on 06/04/2019 at 14:31 Approved by: Ivan Godwin M.D. on 06/04/2019 at 14:33 ECG Data Attestation: I personally reviewed and interpreted this ECG as follows: Prior ECG tracings: not available for review Interpretation: Sinus tachycardia Ventricular rate of 147 Normal axis Normal QRS Normal QTC No ST T wave changes MDM Narrative Medical decision making narrative: Patient with metastatic hepatocellular carcinoma. Arrived tachypneic, tachycardic, hypoxic. This improved her very short period of time with oxygen by nasal cannula which had to be transition to a non-rebreather and then transitioned to BiPAP. CTA of the chest shows no pulmonary embolism but does show stable metastatic disease. He does have an elevated procalcitonin. He was given Rocephin and azithromycin to cover for any potential pneumonia etiology of his symptoms. He was sinus tachycardia. Had a long discussion with Dr. Cabrales with Internal Medicine who had some concerns regarding the patient's respiratory status. I did discuss the case with Dr. Gallego with pulmonology at [facility] who stated that he would not be a candidate for stenting unless he had significant narrowing in the very proximal airways. He does not have this today. She did not think that there would be emergent pulmonology interventions. I did discuss the case with Dr. Hansen with Internal Medicine the [facility] who accepts the patient for transport. We feel that transport to this facility would be necessary in the event that the patient needed to be intubated in potentially had a very difficult time with weaning from the vent. While we were waiting for transport the patient did desat on the BiPAP. We increased his FiO2 which only minimally improved his symptoms. He stated that he was beginning to get very tired with breathing. The decision was made to intubate the patient prior to transport. He was intubated with 1st pass success without problems. Has 8- 0 tube at 23 at the teeth. Prior to intubation I had a discussion with him regarding his expectations and plan of care. The patient stated that he did want intubated. He stated that he was okay with CPR if his heart were to stop beating. I updated accepting provider on patient's new condition. Will continue with transfer. Patient is currently stable for transfer. 1500: Patient has been tolerating the ventilator without issue. Repeat vital signs did show a rectal temperature of 102?. He does have an elevated lactate. An elevated procalcitonin. He has received Rocephin and azithromycin for presumed respiratory cause of his symptoms. Blood cultures were obtained. Patient's blood pressure has been maintaining systolic in the high 80s and 90s with a map greater than 70. Patient is being fluid resuscitated. Will continue with plan for transport Critical Care Time Critical Care Time: Yes Total Critical Care Time: 40 Attestation: The high probability of a clinically significant, sudden or life threatening deterioration of the respiratory and cardiovascular system(s) required my full and direct attention, intervention and personal management. The aggregate critical care time was 40 minutes. This time is in addition to time spent performing reported procedures but includes the following: [] Data Review and interpretation [] Patient assessment and monitoring of vital signs [] Documentation [] Medication orders and management Discharge Plan Departure Patient Disposition: [facility] Clinical Impression: Hepatocellular carcinoma, Shortness of breath, Hypoxia, Hypoglycemia, Acute respiratory distress, Hyponatremia Prescriptions: No Action albuterol sulfate 90 mcg/actuation HFA aerosol inhaler 2 puff inhalation Q6H PRN (Reason: Wheezing) RF: 0 multivitamin [Daily-Hernan] tablet 1 tab PO DAILY RF: 0 fluconazole 100 mg tablet 100 mg PO DAILY RF: 0 buspirone 5 mg tablet 5 mg PO BID RF: 0 fentanyl 50 mcg/hr patch 72 hour 50 mcg/hr transdermal SEEINSTR RF: 0 fluconazole 200 mg tablet 200 mg PO DAILY RF: 0 clopidogrel 75 mg tablet 75 mg PO DAILY RF: 0 dronabinol 2.5 mg capsule 2.5 mg PO BID RF: 0 fentanyl 100 mcg/hr patch 72 hour See Rx Instructions .ROUTE .COMPLEX RF: 0 folic acid 1 mg tablet 1 mg PO DAILY RF: 0 zolpidem 5 mg tablet 5 mg PO BEDTIME RF: 0 gabapentin 100 mg capsule 300 mg PO BEDTIME RF: 0 fentanyl 25 mcg/hr patch 72 hour 25 mcg/hr transdermal SEEINSTR RF: 0 duloxetine 30 mg capsule,delayed release(DR/EC) 30 mg PO DAILY RF: 0 duloxetine 60 mg capsule,delayed release(DR/EC) 60 mg PO DAILY RF: 0 dexamethasone 4 mg tablet 4 mg PO TID RF: 0 polyethylene glycol 3350 17 gram/dose powder 17 g PO PRN PRN (Reason: Constipation) RF: 0 oxycodone 20 mg tablet 20 mg PO Q4H RF: 0 dexamethasone 4 mg tablet 4 mg PO QID Qty: 40 RF: 0 metoprolol succinate 50 mg Tablet Extended Release 24 Hr 50 mg PO BID RF: 0 baclofen 20 mg Tablet 20 mg PO TID RF: 0 esomeprazole magnesium 40 mg Capsule,Delayed Release(Dr/Ec) 40 mg PO DAILY RF: 0 pramipexole 0.25 mg Tablet 0.25 mg PO TID RF: 0 lisinopril 5 mg Tablet 5 mg DAILY RF: 0 Lenvima 36 mg DAILY RF: 0 Referrals: Angeline Mejia MD [Primary Care Provider] -
--- NOTE | 2019-06-04 11:19 | DI.CT.S_ITS ---
PROCEDURE: CT ANGIO CHEST PE PROTOCOL INDICATIONS: Chest pain, shortness of breath, tachycardia TECHNIQUE: After the administration of intravenous contrast, 2 mm thick sections acquired from the pulmonary apices to the posterior costophrenic angles. 3-dimensional maximum intensity projection (MIP) coronal and sagittal reformats were then acquired through the thorax. For radiation dose reduction, the following was used: automated exposure control, adjustment of mA and/or kV according to patient size. COMPARISON: [facility], CT, CT CHEST ABD PEL W CON, 06/01/2019, 16:34. FINDINGS: Image quality: Excellent. Pulmonary arteries: Pulmonary arteries are normal in size, and demonstrate no intraluminal filling defects to suggest central pulmonary embolism. Lungs and pleura: Bilateral pulmonary masses are seen, which are stable. Calcified granulomas are seen. Atelectasis is seen at the right lung base. No pleural effusions or pneumothorax. Central and peripheral airways are patent. Mediastinum: Post CABG changes are seen. Heart size is normal, without pericardial effusion. Borderline prominent mediastinal lymph nodes are seen. Likely enlarged right perihilar lymph nodes are seen, which are poorly evaluated. Thoracic aorta is normal in caliber and enhancement. Esophagus is normal in caliber, without hiatal hernia. Bones and chest wall: No suspicious bony lesions. Ribs and thoracic spine appear intact throughout. Age-appropriate bony degenerative changes are seen. Thyroid gland demonstrates no significant CT abnormality. No axillary or supraclavicular adenopathy. Abdomen: Numerous liver masses are seen, which are most prominent posteriorly. The visualized portions of the upper abdominal structures are otherwise unremarkable for imaging technique. IMPRESSION: Negative for pulmonary embolism. Bilateral pulmonary masses are again seen. The appearance is highly worrisome for metastatic disease. Liver masses are again seen. Borderline prominent mediastinal lymph nodes are seen. Likely enlarged right perihilar lymph nodes are seen, which are poorly evaluated. Incidental note is made of: Prior CABG Dictated by: Jad Bueno M.D. on 06/04/2019 at 10:54 Approved by: Jad Bueno M.D. on 06/04/2019 at 11:01
[2019-06-04] MEDS: SODIUM CHLORIDE 0.9% 1,000 ML 999 ML IV (11:35)
[2019-06-04 12:07] LABS: Hematocrit 49.3 % (41-53); Hemoglobin 16.7 g/dL (13.5-17.5); Mean Corpuscular HGB Conc 33.9 % (30-36); Mean Corpuscular Hemoglobin 32.1 PG (26-34); Mean Corpuscular Volume 94.8 fL (80-100); Platelet Count 62 X10^3/uL (150-400); Red Cell Distribution Width 16.8 % (11.6-14.8); White Blood Cell Count 4.1 X10^3/uL (4.5-11.0)
--- NOTE | 2019-06-04 12:10 | PC.NURSE ---
Addendum entered by Monalisa Hyatt R.N. 06/04/19 16:15: Pt intubated at 1400 secondary to increased work of breathing with BIPAP and decreased oxygen saturation in the high 80s. Tolerated procedure well. Vent settings set up by respiratory therapist and NG and [place] catheter placed. Chest xray obtained for NG placement verification. Pt sedated with fentanyl and midazolam drips. His brother, Pramod, was called and updated on his condition. Patient has rectal temperature of 102.7. Provider notified and Tylenol suppository given. Patient's blood sugar down to 68 prior to departure from ED with [facility]. Provider notified and another dose of D50 was given. Vital signs were taken q5min for entire duration of stay. See paper chart for additional vital signs. Addendum entered by Monalisa Hyatt R.N. 06/04/19 12:43: Lab up to draw patient for additional blood. Last sample was also partially hemolyzed. Original Note: RN to CT with patient on continuous hemodynamic monitoring. Patient's oxygen turned up to 6L and his oxygen saturation was 90% while lying flat with a blood pressure of 74/51 and pulse of 145 sinus tachycardia. Second RN to CT to hang IV fluid bolus. Patient's blood pressure improved to low 100s after initiation of bolus and oxygen saturation improved to 94% on 6L nasal cannula after patient was transferred from CT to upright position on [facility]. Provider notified and BPAP initiated by Respiratory therapist per order. Second IV placed and blood redrawn. Will continue to monitor.
[2019-06-04 12:13] LABS: B Type Natriuretic Peptide 186 (<100)
[2019-06-04 12:15] LABS: INR 1.4 (0.9-1.3); Prothrombin Time 16.6 SECONDS (10.1-12.7)
[2019-06-04 12:17] LABS: PTT Partial Thromboplastin Tim 31 SECONDS (26.4-36.2)
[2019-06-04] MEDS: CEFTRIAXONE 1 GM/50 ML FROZ.PIGGY IV (12:31)
[2019-06-04] MEDS: AZITHROMYCIN 500 MG in DEXTROSE 5% IN WATER 250 ML IV (12:31)
[2019-06-04 12:34] LABS: Add Manual Diff / Slide Review YES
[2019-06-04 12:41] LABS: Neutrophils Absolute Manual 3444 /uL (3000-5900); Total Cells Counted 100
[2019-06-04 12:42] LABS: RBC Morphology Normal Morphology
[2019-06-04 13:04] LABS: Lactate (Lactic Acid) 3.3 mmol/L (0.7-2.1)
[2019-06-04 13:05] LABS: Alanine Aminotransferase 138 IU/L (21-72); Albumin 2.6 g/dL (3.5-5.0); Albumin Globulin Ratio 0.8 (1.0-2.8); Alkaline Phosphatase 281 U/L (38-126); Aspartate Aminotransferase 308 IU/L (17-59); BUN Creatinine Ratio 34.5 (6-22); Bilirubin Total 3.6 mg/dL (0.2-1.3); Blood Urea Nitrogen 38 mg/dL (9-20); Carbon Dioxide 27 mmol/L (22-32); Chloride 90 mmol/L (98-107); Estimated Glomerular Filt Rate > 60.0 mL/min (>60); Globulin 3.1 g/dL (1.7-4.1); HEMOLYSIS 19 (0-50); Lipase 11 U/L (23-300); Sodium 125 mmol/L (137-145); Total Protein 5.7 g/dL (6.3-8.2)
[2019-06-04 13:06] LABS: Potassium 5.7 mmol/L (3.4-5.1)
[2019-06-04] MEDS: SODIUM CHLORIDE 0.9% 1,000 ML 150 ML IV (13:06)
[2019-06-04 13:07] LABS: Glucose 41 mg/dL (70-100)
[2019-06-04] MEDS: DEXTROSE 50 % IN WATER 25 GM/50 ML SYRINGE IV ×2 (13:08→15:50)
[2019-06-04 13:17] LABS: Troponin I 0.033 ng/mL (0.01-0.034)
[2019-06-04 13:19] LABS: PCO2 ABG 28.1 mmHg (35-45); pH ABG 7.43 (7.35-7.45)
[2019-06-04 13:20] LABS: HCO3 ABG 19 mmol/L (22-26); Oxygen Saturation ABG 94 % (95-100); PO2 ABG 66 mmHg (80-100); TCO2 ABG 20 mmol/L (21-31)
[2019-06-04 13:21] LABS: Fractionated Inspired Oxygen 40
[2019-06-04 13:34] LABS: Procalcitonin 12.96 ng/mL (<0.5)
--- NOTE | 2019-06-04 13:43 | DI.RAD.S_ITS ---
PROCEDURE: XR CHEST 1V INDICATIONS: post intubation TECHNIQUE: One view of the chest was acquired. COMPARISON: [facility], CT, CT CHEST ABD PEL W CON, 06/01/2019, 16:34. [facility], CT, CT ANGIO CHEST PE PROTOCOL, 06/04/2019, 11:22. FINDINGS: Surgical changes and devices: ET tube in satisfactory position, with its tip approximately 4.6 cm above the eva.. Lungs and pleura: Multiple pulmonary masses noted. No pleural effusions or pneumothorax. Mediastinum: Mediastinal contours appear normal. Heart size is normal. Bones and chest wall: No suspicious bony lesions. Overlying soft tissues appear unremarkable. IMPRESSION: ET tube in satisfactory position. Multiple pulmonary masses. Dictated by: Ivan Godwin M.D. on 06/04/2019 at 14:31 Approved by: Ivan Godwin M.D. on 06/04/2019 at 14:33
[2019-06-04] MEDS: ETOMIDATE 2 MG/ML 10 ML VIAL 20 MG IV (13:49)
[2019-06-04] MEDS: SUCCINYLCHOLINE 100 MG/5 ML INJ 120 MG IV (13:49)
[2019-06-04] MEDS: MIDAZOLAM 2 MG/2 ML VIAL 4 MG (14:05)
[2019-06-04] MEDS: fentaNYL 100 MCG/2 ML INJ 50 MCG IV ×2 (14:05→14:45)
[2019-06-04] MEDS: fentaNYL 1,000 MCG in DEXTROSE 5% IN WATER 250 ML 15.35 ML IV (14:20)
[2019-06-04] MEDS: MIDAZOLAM 50 MG in DEXTROSE 5% IN WATER 250 ML 25 ML IV (14:20)
[2019-06-04 14:45] LABS: Reflexed Lactate in 2 Hours Y
--- NOTE | 2019-06-04 14:46 | PC.NURSE ---
# 18 fr NGT placed right nare w/ + placement indicated by auscultation over stomach w/ air infusion, + gastric content return, ph 3.
[2019-06-04] MEDS: ACETAMINOPHEN 650 MG SUPP PR (14:59)
[2019-06-04 15:12] LABS: Bacteria Urine None Seen; RBC Urine None Seen (0-5/HPF)
--- NOTE | 2019-06-04 15:12 | DI.RAD.S_ITS ---
PROCEDURE: XR CHEST 1V INDICATIONS: Post NG tube placement TECHNIQUE: One view of the chest was acquired. COMPARISON: [facility], CT, CT ANGIO CHEST PE PROTOCOL, 06/04/2019, 11:22. [facility], CT, CT CHEST ABD PEL W CON, 06/01/2019, 16:34. [facility], CR, XR CHEST 1V, 06/04/2019, 14:05. FINDINGS: Surgical changes and devices: An endotracheal tube is seen, with the tip nearly 5.5 cm above the eva. A gastric tube is seen, with the tip not visible, yet traversing below the level of the diaphragm. The sidehole is seen below the level of the diaphragm. Post CABG changes are seen. Lungs and pleura: Multiple pulmonary nodules are again seen. On this supine examination, no large pneumothorax or large pleural effusions are seen. Low lung volumes are noted. This causes a crowded appearance to the lung markings and limits evaluation. Mediastinum: Mediastinal contours appear normal. Heart size is normal. Bones and chest wall: No suspicious bony lesions. Age-appropriate bony degenerative changes are seen. Overlying soft tissues appear unremarkable. IMPRESSION: The gastric tube tip traverses below the level of the diaphragm. The endotracheal tube tip is seen 5.5 cm above the eva. Multiple pulmonary masses are seen. Dictated by: Jad Bueno M.D. on 06/04/2019 at 14:24 Approved by: Jad Bueno M.D. on 06/04/2019 at 14:27
[2019-06-04 15:14] LABS: Appearance Urine UA CLEAR; Bilirubin Urine UA 2+ (NEGATIVE); Color Urine UA YELLOW; Glucose Urine UA NEGATIVE (Negative); Ketones Urine UA NEGATIVE (NEGATIVE); Leukocyte Esterase Urine UA NEGATIVE (NEGATIVE); Nitrite Urine UA NEGATIVE (Negative); Occult Blood Urine UA 1+ (Negative); Protein Urine UA 1+ (Negative); pH Urine UA 6.5 (4.5-8.0)
[2019-06-04 15:29] LABS: Hyaline Casts Urine 1-5/LPF; Ictotest Urine Positive (Negative); Mucus Urine 2+ (Negative); Renal Epithelial Cells Urine 0-1/HPF (0-1/HPF); WBC Urine 1-5/HPF (0-5/HPF)
[2019-06-04 15:30] LABS: Lactate 2HR (Lactic Acid Rflx) 3.9 mmol/L (0.7-2.1)
[2019-06-04 15:30] LABS: Culture Indicated Urine Cult Not Indicated
[2019-06-04 15:32] LABS: HCO3 ABG 18 mmol/L (22-26); PCO2 ABG 30.3 mmHg (35-45); PO2 ABG 59 mmHg (80-100); pH ABG 7.37 (7.35-7.45)
[2019-06-04 15:33] LABS: Oxygen Saturation ABG 90 % (95-100); TCO2 ABG 18 mmol/L (21-31)
[2019-06-04 15:34] LABS: Fractionated Inspired Oxygen 40
--- NOTE | 2019-06-07 08:33 | ONC.MSW ---
*Sent bereavement card.
== END 2019-06-04 16:00 | disposition short-term general hospital (02) ==
PROVIDERS: Emergency Provider Emergency Medicine; PCP Internal Medicine
DX: C22.0 Liver cell carcinoma (principal); R06.02 Shortness of breath; R09.02 Hypoxemia; E16.2 Hypoglycemia, unspecified; R06.03 Acute respiratory distress; E87.1 Hypo-osmolality and hyponatremia
CPT/HCPCS: 36415; 36591; 36600; 71045; 71275; 80053; 81001; 82805; 82962; 83605; 83690; 83880; 84145; 84484; 85025; 85610; 85730; 87040; 93005; 93010; 94660; 94770; 94799; 96361; 96365; 96366; 96367; 96368; 96375; 96376; 99285; 99291; 99292; J0330; J2250; J3010; Q9967